=== PATIENT | female | born 1945 | race Caucasian/White ===

== ENCOUNTER 2020-07-07 13:13 | Outpatient (REF) | payer MEDICARE, OTHER, SELFPAY ==
[2020-07-07 14:04] LABS: Hematocrit 30.5 % (37-47); Hemoglobin 9.8 g/dl (12.0-16.0); Mean Corpuscular HGB Conc 32.1 g/dl (31.0-35.0); Mean Corpuscular Hemoglobin 30.4 pg (27.0-33.0); Mean Corpuscular Volume 94.7 fL (80-98); Mean Platelet Volume 10.2 fL (9.4-12.3); Platelet Count 365 X10*3/uL (160-400); Red Blood Count 3.22 X10*6/uL (4.20-5.50); Red Cell Distribution Width 13.5 % (11.0-16.0)
[2020-07-07 14:28] LABS: Alanine Aminotransferase 20 U/L (0-31); Albumin Level 4.2 g/dL (3.5-5.0); Alkaline Phosphatase 120 U/L (39-117); Anion Gap 12 (12-20); Aspartate Amino Transferase 21 U/L (5-31); Bilirubin Total 0.9 mg/dL (0.0-1.0); Blood Urea Nitrogen 19 mg/dL (9-16); Calcium 9.9 mg/dL (8.4-10.2); Carbon Dioxide 30 mmol/L (22-29); Chloride 101 mmol/L (96-108); Cholesterol 136 mg/dL; Estimated Glomerular Filt Rate 43; Glucose Fasting 96 mg/dL (60-99); HDL Cholesterol 35 mg/dL; LDL Cholesterol Calculated 84 mg/dl; Potassium 4.9 mmol/l (3.3-5.1); Sodium 138 mmol/L (135-145); Triglycerides 88 mg/dL
[2020-07-07 14:37] LABS: Thyroid Stimulating Hormone 0.43 uIU/mL (0.32-4.0); Vitamin D 25-OH Total 36.9 ng/mL (>30)
== END 2020-07-07 13:14 | disposition home or self-care (01) ==
LOC: HO.HMGCLDS 13:13
PROVIDERS: PCP Internal Medicine; Visit Provider Internal Medicine
DX: E78.2 Mixed hyperlipidemia (principal); I10 Essential (primary) hypertension; Z78.0 Asymptomatic menopausal state
CPT/HCPCS: 36415; 80053; 80061; 82306; 84443; 85027

== ENCOUNTER 2021-03-23 14:30 | Outpatient (RCR) | payer MEDICARE, OTHER, SELFPAY | END 2021-05-21 08:42 | disposition home or self-care (01) | LOC: HO.OT 14:30 | PROVIDERS: PCP Internal Medicine; Visit Provider Internal Medicine | DX: I63.9 Cerebral infarction, unspecified (principal) | CPT/HCPCS: 29130; 97110; 97166; 97530; 97760 ==

== ENCOUNTER 2021-04-15 11:00 | Outpatient (RCR) | payer MEDICARE, OTHER, SELFPAY ==
--- NOTE | 2021-06-15 14:44 | MHC.PT.DC ---
[facility] [place] Office [place] Office [place] Office [address] Ida Espino [address] [phone] F: [phone] F: [phone] F: [phone] F: [phone] Physical Therapy Discharge Report Diagnosis: CVA WITH RESIDUAL L SIDED WEAKNESS Date of Surgery: Date of Evaluation: 01/12/21 Date of Discharge: 04/15/21 Treatments to Date: 12 Cancellations to Date: 6 No Shows to Date: 2 Discharge Status: Independent with HEP Discharge Summary: PER LAST NOTE ASSESSMENT ON 04/15/21 PER JUDY FIGUEREDO AGILE SCRUM MASTER:' pt has no reported toe pain today. MD follow up on May 05. pt is Ind with her HEP. Amb to appt without device. pt feels her strength and endurance have increased. Requests D/C today. ' Electronically signed by: NAYELI MANN PT Please sign and return to therapist. Thank you for your referral.
== END 2021-06-15 14:44 | disposition home or self-care (01) ==
LOC: HO.PT 11:00
PROVIDERS: PCP Internal Medicine; Visit Provider Internal Medicine
DX: I63.9 Cerebral infarction, unspecified (principal)
CPT/HCPCS: 97110; 97112; 97162; 97530

== ENCOUNTER 2021-05-04 09:28 | Outpatient (REF) | payer MEDICARE, OTHER, SELFPAY ==
[2021-05-04 11:32] LABS: Hematocrit 35.6 % (37-47); Hemoglobin 11.2 g/dl (12.0-16.0); Mean Corpuscular HGB Conc 31.5 g/dl (31.0-35.0); Mean Corpuscular Hemoglobin 28.9 pg (27.0-33.0); Mean Platelet Volume 10.7 fL (9.4-12.3); Platelet Count 296 X10*3/uL (160-400); Red Blood Count 3.87 X10*6/uL (4.20-5.50); Red Cell Distribution Width 14.3 % (11.0-16.0); White Blood Count 5.9 X10*3/uL (4.8-10.8)
[2021-05-04 12:11] LABS: Alanine Aminotransferase 10 U/L (0-31); Alkaline Phosphatase 138 U/L (39-117); Anion Gap 11 (12-20); Aspartate Amino Transferase 16 U/L (5-31); Blood Urea Nitrogen 10 mg/dL (9-16); Calcium 9.3 mg/dL (8.4-10.2); Carbon Dioxide 28 mmol/L (22-29); Chloride 104 mmol/L (96-108); Cholesterol 123 mg/dL; Estimated Glomerular Filt Rate 59; Glucose Fasting 98 mg/dL (60-99); HDL Cholesterol 40 mg/dL; LDL Cholesterol Calculated 68 mg/dl; Potassium 4.1 mmol/L (3.3-5.1); Sodium 139 mmol/L (135-145); Total Protein 6.9 g/dL (6.5-8.0); Triglycerides 79 mg/dL
[2021-05-04 12:23] LABS: Folate 8.5 ng/mL (> or = 4.0); Vitamin B12 348 pg/mL (200-900)
[2021-05-04 12:32] LABS: TSH reflex Free T4 0.65 uIU/mL (0.32-4.0)
== END 2021-05-04 09:29 | disposition home or self-care (01) ==
LOC: HO.HMGCLDS 09:28
PROVIDERS: PCP Internal Medicine; Visit Provider Internal Medicine
DX: E78.5 Hyperlipidemia, unspecified (principal); I10 Essential (primary) hypertension; I63.9 Cerebral infarction, unspecified
CPT/HCPCS: 36415; 80053; 80061; 82607; 82746; 84443; 85027

== ENCOUNTER 2021-11-24 10:59 | Outpatient (REF) | payer MEDICARE, OTHER, SELFPAY ==
[2021-11-24 14:00] LABS: Hematocrit 40.8 % (37.0-47.0); Hemoglobin 12.8 g/dl (12.0-16.0); Mean Corpuscular HGB Conc 31.4 g/dl (31.0-35.0); Mean Corpuscular Hemoglobin 29.7 pg (27.0-33.0); Mean Corpuscular Volume 94.7 fL (80.0-98.0); Mean Platelet Volume 10.5 fL (9.4-12.3); Platelet Count 340 X10*3/uL (160-400); Red Blood Count 4.31 X10*6/uL (4.20-5.50); Red Cell Distribution Width 12.7 % (11.0-16.0); White Blood Count 9.1 X10*3/uL (4.8-10.8)
[2021-11-24 14:17] LABS: Alanine Aminotransferase 23 U/L (0-31); Albumin Level 4.4 g/dL (3.5-5.0); Alkaline Phosphatase 142 U/L (39-117); Anion Gap 12 (12-20); Aspartate Amino Transferase 23 U/L (5-31); Bilirubin Total 1.3 mg/dL (0.0-1.0); Blood Urea Nitrogen 16 mg/dL (9-16); Calcium 9.7 mg/dL (8.4-10.2); Carbon Dioxide 28 mmol/L (22-29); Chloride 103 mmol/L (96-108); Cholesterol 159 mg/dL; Estimated Glomerular Filt Rate 59; Glucose Fasting 90 mg/dL (60-99); HDL Cholesterol 47 mg/dL; LDL Cholesterol Calculated 99 mg/dl; Sodium 139 mmol/L (135-145); Total Protein 7.9 g/dL (6.5-8.0); Triglycerides 69 mg/dL
[2021-11-24 14:30] LABS: TSH reflex Free T4 0.85 uIU/mL (0.32-4.0); Vitamin D 25-OH Total 36.5 ng/mL (>30)
[2021-11-24 14:39] LABS: Vitamin B12 443 pg/mL (200-900)
== END 2021-11-24 11:00 | disposition home or self-care (01) ==
LOC: HO.HMGCLDS 10:59
PROVIDERS: PCP Internal Medicine; Visit Provider Internal Medicine
DX: E53.8 Deficiency of other specified B group vitamins (principal); E55.9 Vitamin D deficiency, unspecified; E78.5 Hyperlipidemia, unspecified; I48.91 Unspecified atrial fibrillation; I63.9 Cerebral infarction, unspecified
CPT/HCPCS: 36415; 80053; 80061; 82306; 82607; 84443; 85027

== ENCOUNTER 2022-03-16 10:20 | Outpatient (REF) | payer MEDICARE, OTHER, SELFPAY ==
[2022-03-16 11:47] LABS: Hematocrit 35.8 % (37.0-47.0); Hemoglobin 11.3 g/dl (12.0-16.0); Mean Corpuscular HGB Conc 31.6 g/dl (31.0-35.0); Mean Corpuscular Hemoglobin 29.6 pg (27.0-33.0); Mean Corpuscular Volume 93.7 fL (80.0-98.0); Mean Platelet Volume 10.5 fL (9.4-12.3); Platelet Count 280 X10*3/uL (160-400); Red Blood Count 3.82 X10*6/uL (4.20-5.50); White Blood Count 7.5 X10*3/uL (4.8-10.8)
[2022-03-16 12:11] LABS: Alanine Aminotransferase 24 U/L (0-31); Albumin Level 4.2 g/dL (3.5-5.0); Alkaline Phosphatase 122 U/L (39-117); Anion Gap 13 (12-20); Aspartate Amino Transferase 23 U/L (5-31); Bilirubin Total 1.3 mg/dL (0.0-1.0); Blood Urea Nitrogen 14 mg/dL (9-16); Calcium 9.1 mg/dL (8.4-10.2); Carbon Dioxide 29 mmol/L (22-29); Chloride 103 mmol/L (96-108); Cholesterol 111 mg/dL; Estimated Glomerular Filt Rate > 60; Glucose Fasting 92 mg/dL (60-99); HDL Cholesterol 39 mg/dL; LDL Cholesterol Calculated 57 mg/dl; Potassium 4.6 mmol/L (3.3-5.1); Sodium 140 mmol/L (135-145); Total Protein 7.2 g/dL (6.5-8.0); Triglycerides 75 mg/dL
== END 2022-03-16 10:21 | disposition home or self-care (01) ==
LOC: HO.HMGCLDS 10:20
PROVIDERS: Visit Provider Internal Medicine
DX: I48.91 Unspecified atrial fibrillation (principal); I10 Essential (primary) hypertension; L40.9 Psoriasis, unspecified; E78.5 Hyperlipidemia, unspecified
CPT/HCPCS: 36415; 80053; 80061; 85027

== ENCOUNTER 2022-04-12 15:23 | Outpatient (REF) | payer MEDICARE, OTHER, SELFPAY ==
--- NOTE | ~2022-04-12 | XR_ITS ---
EXAMINATION: XR ANKLE, LEFT CLINICAL INFORMATION: Left ankle pain. Pain in the left foot. COMPARISON: None TECHNIQUE: AP, lateral, and mortise views of the left ankle. FINDINGS: Bones are osteopenic. Soft tissues are swollen. No fracture or malalignment. Calcific atherosclerosis. Moderate sized enthesopathic spurs are present at the Achilles tendon insertion and plantar fascial origin on the calcaneus. Dystrophic calcifications are seen in the region of the Achilles tendon at the myotendinous junction, suggestive of tendinopathy. Ankle mortise is symmetric. XR/XR ankle LT min 3V IMPRESSION: 1. No acute osseous abnormalities at the left ankle 2. Generalized soft tissue swelling. 3. Prominent enthesopathic spurs at the calcaneus.
[2022-04-12 17:00] LABS: C Reactive Protein 0.08 mg/dL (< or = 0.50); Uric Acid 4.8 mg/dL (2.4-5.7)
== END 2022-04-12 15:24 | disposition home or self-care (01) ==
LOC: HO.HMGCX 15:23
PROVIDERS: PCP Internal Medicine; Visit Provider Internal Medicine
DX: M25.572 Pain in left ankle and joints of left foot (principal)
CPT/HCPCS: 36415; 73610; 84550; 86140

== ENCOUNTER 2022-07-16 11:08 | Outpatient (REF) | payer MEDICARE, OTHER, SELFPAY ==
[2022-07-16 15:28] LABS: Alanine Aminotransferase 20 U/L (0-31); Albumin Level 4.3 g/dL (3.5-5.0); Alkaline Phosphatase 159 U/L (39-117); Anion Gap 14 (12-20); Aspartate Amino Transferase 22 U/L (5-31); Blood Urea Nitrogen 11 mg/dL (9-16); Calcium 9.8 mg/dL (8.4-10.2); Carbon Dioxide 28 mmol/L (22-29); Chloride 102 mmol/L (96-108); Cholesterol 124 mg/dL; Estimated Glomerular Filt Rate > 60; Glucose Fasting 92 mg/dL (60-99); HDL Cholesterol 37 mg/dL; LDL Cholesterol Calculated 72 mg/dl; Potassium 4.4 mmol/L (3.3-5.1); Sodium 140 mmol/L (135-145); Total Protein 7.6 g/dL (6.5-8.0); Triglycerides 77 mg/dL
== END 2022-07-16 11:09 | disposition home or self-care (01) ==
LOC: HO.HMGCLDS 11:08
PROVIDERS: PCP Internal Medicine; Visit Provider Internal Medicine
DX: E78.5 Hyperlipidemia, unspecified (principal); I10 Essential (primary) hypertension; E55.9 Vitamin D deficiency, unspecified
CPT/HCPCS: 36415; 80053; 80061

== ENCOUNTER 2022-11-23 10:42 | Outpatient (REF) | payer MEDICARE, OTHER, SELFPAY ==
[2022-11-23 11:39] LABS: MANUAL DIFF FLAG NO
[2022-11-23 11:51] LABS: Basophils Absolute Auto 0.1 X10*3/uL (0.0-0.2); Basophils Percent Auto 1.1 % (0-2); Eosinophils Absolute Auto 0.1 X10*3/uL (0.0-0.4); Eosinophils Percent Auto 1.6 % (0-4); Hematocrit 36.9 % (37.0-47.0); Hemoglobin 11.5 g/dl (12.0-16.0); Imm Gran Abs Auto 0.02 X10*3/uL (0.00-0.03); Imm Gran Pct Auto 0.3 % (0.0-0.4); Lymphocytes Absolute Auto 0.8 X10*3/uL (1.2-4.9); Lymphocytes Percent Auto 13.1 % (20-40); Mean Corpuscular HGB Conc 31.2 g/dl (31.0-35.0); Mean Corpuscular Volume 93.2 fL (80.0-98.0); Mean Platelet Volume 10.9 fL (9.4-12.3); Monocytes Absolute Auto 0.6 X10*3/uL (0.1-1.2); Monocytes Percent Auto 8.6 % (2-11); Neutrophils Absolute Auto 4.8 x10*3/uL (2.0-8.3); Neutrophils Percent Auto 75.3 % (45-73); Platelet Count 293 X10*3/uL (160-400); Red Blood Count 3.96 X10*6/uL (4.20-5.50); Red Cell Distribution Width 13.5 % (11.0-16.0); White Blood Count 6.4 X10*3/uL (4.8-10.8)
[2022-11-23 12:24] LABS: Alanine Aminotransferase 19 U/L (0-31); Albumin Level 4.1 g/dL (3.5-5.0); Alkaline Phosphatase 129 U/L (39-117); Anion Gap 10 (12-20); Aspartate Amino Transferase 24 U/L (5-31); Bilirubin Total 1.3 mg/dL (0.0-1.0); Blood Urea Nitrogen 15 mg/dL (9-16); Calcium 9.3 mg/dL (8.4-10.2); Carbon Dioxide 29 mmol/L (22-29); Chloride 104 mmol/L (96-108); Estimated Glomerular Filt Rate > 60; Glucose Fasting 91 mg/dL (60-99); Sodium 139 mmol/L (135-145); Total Protein 6.9 g/dL (6.5-8.0)
[2022-11-23 12:55] LABS: Folate 12.7 ng/mL (> or = 4.0); Vitamin B12 397 pg/mL (200-900); Vitamin D 25-OH Total 39.9 ng/mL (>30)
== END 2022-11-23 10:43 | disposition home or self-care (01) ==
LOC: HO.HMGCLDS 10:42
PROVIDERS: PCP Internal Medicine; Visit Provider Internal Medicine
DX: E55.9 Vitamin D deficiency, unspecified (principal); E53.8 Deficiency of other specified B group vitamins; I48.91 Unspecified atrial fibrillation; E78.5 Hyperlipidemia, unspecified; I10 Essential (primary) hypertension
CPT/HCPCS: 36415; 80053; 82306; 82607; 82746; 85025

== ENCOUNTER 2023-06-21 10:33 | Outpatient (REF) | payer MEDICARE, OTHER, SELFPAY ==
[2023-06-21 13:28] LABS: MANUAL DIFF FLAG NO
[2023-06-21 13:39] LABS: Basophils Absolute Auto 0.1 X10*3/uL (0.0-0.2); Basophils Percent Auto 0.9 % (0-2); Eosinophils Absolute Auto 0.1 X10*3/uL (0.0-0.4); Eosinophils Percent Auto 1.8 % (0-4); Hematocrit 39.9 % (37.0-47.0); Hemoglobin 12.6 g/dl (12.0-16.0); Imm Gran Abs Auto 0.02 X10*3/uL (0.00-0.03); Imm Gran Pct Auto 0.3 % (0.0-0.4); Lymphocytes Absolute Auto 0.8 X10*3/uL (1.2-4.9); Lymphocytes Percent Auto 10.1 % (20-40); Mean Corpuscular HGB Conc 31.6 g/dl (31.0-35.0); Mean Corpuscular Hemoglobin 29.2 pg (27.0-33.0); Mean Corpuscular Volume 92.4 fL (80.0-98.0); Mean Platelet Volume 10.9 fL (9.4-12.3); Monocytes Absolute Auto 0.8 X10*3/uL (0.1-1.2); Monocytes Percent Auto 9.9 % (2-11); Neutrophils Absolute Auto 6.1 x10*3/uL (2.0-8.3); Platelet Count 320 X10*3/uL (160-400); Red Blood Count 4.32 X10*6/uL (4.20-5.50); Red Cell Distribution Width 14.8 % (11.0-16.0); White Blood Count 7.9 X10*3/uL (4.8-10.8)
[2023-06-21 14:06] LABS: Alanine Aminotransferase 24 U/L (0-31); Albumin Level 4.3 g/dL (3.5-5.0); Alkaline Phosphatase 132 U/L (39-117); Anion Gap 15 (12-20); Aspartate Amino Transferase 31 U/L (5-31); Bilirubin Total 0.9 mg/dL (0.0-1.0); Blood Urea Nitrogen 12 mg/dL (9-16); Calcium 9.9 mg/dL (8.4-10.2); Carbon Dioxide 28 mmol/L (22-29); Chloride 103 mmol/L (96-108); Estimated Glomerular Filt Rate > 60; Glucose Fasting 94 mg/dL (60-99); Potassium 4.3 mmol/L (3.3-5.1); Sodium 142 mmol/L (135-145)
[2023-06-21 14:22] LABS: TSH reflex Free T4 0.59 uIU/mL (0.32-4.0)
== END 2023-06-21 10:34 | disposition home or self-care (01) ==
LOC: HO.HMGCLDS 10:33
PROVIDERS: PCP Internal Medicine; Visit Provider Internal Medicine
DX: E78.5 Hyperlipidemia, unspecified (principal); I10 Essential (primary) hypertension
CPT/HCPCS: 36415; 80053; 84443; 85025

== ENCOUNTER 2023-06-29 13:05 | Outpatient (AMB) | payer MEDICARE, OTHER, SELFPAY ==
--- NOTE | 2023-06-29 13:13 | A.OFFVIS_ITS ---
Intake Vital Signs 06/29/23 13:19 Height 5 ft 4 in Weight 135 lb BMI 23.2 BP 130/80 Blood Pressure Location Rt brachial Position Sitting Pulse 71 Pulse Source Pulse Oximeter Pulse Oximetry (%) 99 Oxygen Delivery Method Room Air Intake Visit Reasons: AWV Intake Note: Pt is here today for AWV. Allergies diclofenac Allergy (Unknown, Verified 06/29/23 13:19) Diarrhea penicillin V Allergy (Unknown, Verified 06/29/23 13:19) hives Clindamycin HCl Allergy (Unknown, Uncoded 06/29/23 13:19) upset stomach nausea Medication List - Last Reconciled 06/29/23 by Vidhya Bobby MD apixaban (Eliquis) 5 mg PO BID atorvastatin 80 mg PO DAILY betamethasone dipropionate 0.05% 1 appl topical BID cetirizine (Zyrtec) PO DAILY desoximetasone 0.25% topical fluoxetine 20 mg PO DAILY lisinopril 30 mg (3 x 10 mg) PO DAILY lisinopril 30 mg PO DAILY metoprolol tartrate 50 mg PO BID omeprazole 20 mg PO DAILY ruxolitinib 1.5% (Opzelura) appl topical triamcinolone acetonide 0.1% 1 appl topical DAILY HPI AWV HPI Details Pt presents for annual. Initiated the conversation about Advanced Directives. Advanced Directives help? patients prepare for current and future decisions about their medical treatment? and place of care. Discussed with patient that it is a process where a patients? current condition and prognosis are reviewed, their wishes for information? regarding their illness are elicited, and likely medical dilemmas are presented? and options discussed. The form can be amended as needed, reviewed yearly and? make changes as needed IPPE/AWV ? year old presents? for her ? Annual? Wellness Visit, initial visit.? Medical / Social History Reviewed? Past Medical History ?Yes? . ? [place]? of Care / Care Team list updated ?Yes . ? Surgical/Hospitalization? History ?Yes . ? Current Medications? (including OTC and supplements) ?Yes . ? Family History ?Yes? . ? Tobacco? Control form ?Yes . ? AUDIT-C (Alcohol use) form? ?Yes . ? Illicit drug use in Social? History ?Yes . ? Current diagnosis of? depression? ?No ? Appropriate PHQ2/PHQ9? completed ?Yes . ? Data entered by ?Medical? Processing Operator and reviewed by provider ? Fall Risk ? Fall? History? Have you had any falls with? injury in the past year? ?No . ? Have you had two or more? falls in the past year? ?No . ? Fall Risk Assessment: ?No? falls in the past year . ? HRA filled out by? the patient, reviewed by Provider and scanned. ? IPPE/AWV ? Balance? Romberg? ?Yes . ? Tandem? walk ?Yes . ? Walk and? Turn ?Yes . ? Rise from? sit to stand ?Yes . ?Vision? Corrective? lens ?Yes ? Vision? screen ? Up-to-date, has an appointment [] for vision? screening and glaucoma screening ?Hearing? Whisper? test ?pass .? Initiated the conversation about Advanced Directives. Advanced Directives help? patients prepare for current and future decisions about their medical treatment? and place of care. Discussed with patient that it is a process where a patients? current condition and prognosis are reviewed, their wishes for information? regarding their illness are elicited, and likely medical dilemmas are presented? and options discussed. The form can be amended as needed, reviewed yearly and? make changes as needed Written? Plan?Completed. See Patient? Documents. [facility] Medical History A-fib Anxiety Burn of leg, left CVA (cerebral vascular accident) HTN (hypertension) Hyperlipidemia Psoriasis Uterine prolapse Vitamin B 12 deficiency Vitamin D deficiency Surgical History No pertinent past surgical history Family History Father No problems noted. Mother No problems noted. Social History Housing: House Patient Tobacco Use Status: Never used Tobacco e-Cigarette/Vaping Use: Never Used Second Hand Smoke Exposure: No Current occupational status: retired Cognitive needs: No Hearing needs: No Vision needs: Yes Questionnaire Medicare Wellness Checkup [age] What gender do you identify with?: female During the past 4 weeks, how much have you been bothered by emotional problems such as feeling anxious, depressed, irritable, sad or downhearted, and blue?: not at all During the past 4 weeks, has your physical & emotional health limited your social activities with family, friends, neighbors, or groups?: not at all During the past 4 weeks, how much bodily pain have you generally had?: mild pain During the past 4 weeks, was someone available to help you if you needed & wanted help?: yes, as much as I wanted During the past 4 weeks, what was the hardest physical activity you could do for at least 2 minutes?: very light Can you get to places out of walking distance without help? (For eg., can you travel alone on buses, taxis or drive your car?): Yes Can you go shopping for groceries or clothes without someone's help?: Yes Can you prepare your own meals?: Yes Can you do your housework without help?: Yes Because of any health problems, do you need the help of another person with your personal care needs such as eating, bathing, dressing or getting around the house?: No Can you handle your own money without help?: Yes During the past 4 weeks, how would you rate your health in general?: good During the past 4 weeks how have things been going for you?: pretty well Are you having difficulties driving your car?: no Do you always fasten your seat belt when you are in a car?: yes, usually During past 4 weeks, have you been bothered by the following: never: Falling or dizzy when standing up, Sexual problems?, Trouble eating well?, Teeth or denture problems?, Problems using the telephone? and Tiredness or fatigue? Have you fallen 2 or more times in the past year?: No Are you afraid of falling?: No Are you a smoker?: no During the past 4 weeks, how many drinks of wine, beer, or other alcoholic beverages did you have?: no alcohol at all Do you exercise for about 20 minutes 3 or more times a week?: yes, most of the time Have you been given information to help with the following?: yes: Hazards in your house that might hurt you? and yes: Keeping track of your medications? How often do you have trouble taking medicines the way you have been told to take them?: I always take medicine as prescribed How confident are you that you can control & manage most of your health problems?: very confident What is your race?: White Mini Mental State Exam (MMSE) Orientation What is the (year) (season) (date) (day) (month)?: year, season, date, day and month Where are we (state) (county) (town or city) (hospital) (floor)?: state, county, town or city, hospital/clinic and floor Registration Name of 3 unrelated objects clearly and slowly, then ask patient to repeat all 3 of them. (1st repeat determines score. Make sure they can repeat all three): object 1, object 2 and object 3 Attention & Calculation (CHOOSE ONE) Ask pt to begin with 100 & count backward by 7. Stop after 5 repeats. If pt cannot ask them to spell the word WORLD backward.: 93 Spell WORLD backwards (DLROW): 5 letters Recall Ask patient to repeat the 3 items from question #3.: object 1, object 2 and object 3 Language Show patient a wristwatch & ask what it is. Repeat for pencil.: pencil Ask the patient to repeat the phrase 'No ifs, ands, or buts' after you.: correct Ask the patient to 'take a piece of paper with their right hand' 'fold paper in half' 'place paper on floor': take paper in right hand, fold paper in half and place paper on floor Print the sentence 'CLOSE YOUR EYES' on a piece. If patient actually closes eyes then score.: followed written direction Give patient a blank piece of paper & ask to write a sentence. Score if it contains a noun & verb.: sentence contains subject and verb Score Score: 29 Activity of Daily Living Bathing - sponge bath, tub bath or shower: receives no assistance (gets in/out by self, if usual bathing means Dressing - getting clothes from closets & drawers, including inner/outer garments & fasteners.: gets clothes & gets completely dressed without help Toileting - going to the 'toilet room' for urine/bowel elimination & cleaning self/arranging clothes: goes to toilet room, cleans self, arranges clothes without help Transfer: moves in & out of bed and chair without help (may use support object) Continence: controls urination/bowel movements completely by self Feeding: feeds self without help Total Score: 0 Information obtained from: patient Using telephone: independent Traveling: dependent Shopping: independent Preparing meals: independent Housework: independent Taking medicine: independent Managing money: independent PHQ-9 Over the last 2 weeks, how often have you been bothered by any of the following problems? 1. Little interest or pleasure in doing things: not at all 2. Feeling down, depressed, or hopeless: not at all 3. Trouble falling or staying asleep, or sleeping too much: not at all 4. Feeling tired or having little energy: not at all 5. Poor appetite or overeating: not at all 6. Feeling bad about yourself - or that you are a failure or have let yourself or your family down: not at all 7. Trouble concentrating on things, such as reading the newspaper or watching television: not at all 8. Moving or speaking so slowly that other people could have noticed. Or the opposite - being so fidgety or restless that you have been moving around a lot more than usual: not at all 9. Thoughts that you would be better off or of hurting yourself in some way: not at all Total score: 0 Depression Screening Interpretation: Negative Depression Screening Done: Yes Source: Developed by Drs. Clark Olsen, Tracy Khoury, Harvinder Mullins and colleagues, with an educational alexandra from [employer]. Review of Systems Const All systems reviewed & are unremarkable except as noted in HPI and below Reports no additional complaints Eyes Reports no additional complaints ENT Reports no additional complaints Card Reports no additional complaints Resp Reports no additional complaints GI Reports no additional complaints Reports no additional complaints Physical Exam Vital Signs: Last Vital Signs Pulse 71 06/29/23 13:19 BP 130/80 06/29/23 13:19 Pulse Ox 99 06/29/23 13:19 Oxygen Delivery Method Room Air 06/29/23 13:19 BMI result Body Mass Index 23.2 Const General: no acute distress HEENT Head: Yes normal to inspection Ears: hearing grossly normal bilaterally Eyes General: appearance normal, both eyes and all related structures Neck Neck: Yes no lymphadenopathy and Yes supple Resp Effort & Inspection: normal respiratory effort Auscultation: clear to auscultation bilaterally Cardio Rhythm: regular rhythm Heart sounds: S1 normal heart sound present and S2 normal heart sound present Extrem General: Yes no clubbing, cyanosis or edema Assessment & Plan Assessment & Plan (1) Annual physical exam: Code(s): Z00.00 - Encounter for general adult medical examination without abnormal findings Plan: Well-balanced diet regular physical activity discussed with the patient (2) A-fib: Code(s): I48.91 - Unspecified atrial fibrillation Plan: Continue Eliquis and metoprolol for rate control (3) Hyperlipidemia: Code(s): E78.5 - Hyperlipidemia, unspecified Plan: Continue statin (4) HTN (hypertension): Code(s): I10 - Essential (primary) hypertension Plan: Continue current medications, f/u 6 months Quality Reporting (2019) Depression/Bipolar (159/160/161/177) PHQ-9: Total score: 0 Coding Level of Care Code Medicare Subsequent (G0439) Diagnoses Annual physical exam Z00.00 A-fib I48.91 Hyperlipidemia E78.5 HTN (hypertension) I10 CPT Codes Advance Care Planning - Time spent: 1-15 minutes, not on file ([id number]) Advance Care Planning Advance Care Planning discussion: Exists, not on file Forms completed: Health Care Proxy Time spent: 1-15 minutes, not on file
[2023-06-29 13:19] VITALS: BP 130/80; PULSE 71; O2SAT 99; BMI 23.2
== END 2023-06-29 15:49 | disposition home or self-care (01) ==
PROVIDERS: PCP Internal Medicine; Visit Provider Internal Medicine
DX: Z00.00 Encounter for general adult medical examination without abnormal findings (principal); I48.91 Unspecified atrial fibrillation; E78.5 Hyperlipidemia, unspecified; I10 Essential (primary) hypertension
CPT/HCPCS: 1124F; G0439

== ENCOUNTER 2023-11-09 10:31 | Outpatient (REF) | payer MEDICARE, OTHER, SELFPAY ==
[2023-11-09 13:24] LABS: MANUAL DIFF FLAG NO
[2023-11-09 13:37] LABS: Basophils Absolute Auto 0.1 X10*3/uL (0.0-0.2); Basophils Percent Auto 1.2 % (0-2); Eosinophils Absolute Auto 0.4 X10*3/uL (0.0-0.4); Hemoglobin 12.4 g/dl (12.0-16.0); Imm Gran Abs Auto 0.03 X10*3/uL (0.00-0.03); Imm Gran Pct Auto 0.3 % (0.0-0.4); Lymphocytes Absolute Auto 0.9 X10*3/uL (1.2-4.9); Lymphocytes Percent Auto 9.9 % (20-40); Mean Corpuscular HGB Conc 31.8 g/dl (31.0-35.0); Mean Corpuscular Hemoglobin 29.5 pg (27.0-33.0); Mean Corpuscular Volume 92.9 fL (80.0-98.0); Mean Platelet Volume 10.6 fL (9.4-12.3); Monocytes Absolute Auto 0.9 X10*3/uL (0.1-1.2); Monocytes Percent Auto 10.5 % (2-11); Neutrophils Absolute Auto 6.4 x10*3/uL (2.0-8.3); Neutrophils Percent Auto 74.1 % (45-73); Platelet Count 319 X10*3/uL (160-400); Red Cell Distribution Width 13.9 % (11.0-16.0); White Blood Count 8.7 X10*3/uL (4.8-10.8)
[2023-11-09 13:57] LABS: Alanine Aminotransferase 20 U/L (0-31); Alkaline Phosphatase 151 U/L (39-117); Anion Gap 11 (12-20); Aspartate Amino Transferase 27 U/L (5-31); Bilirubin Total 1.1 mg/dL (0.0-1.0); Blood Urea Nitrogen 12 mg/dL (9-16); Calcium 9.7 mg/dL (8.4-10.2); Carbon Dioxide 29 mmol/L (22-29); Chloride 103 mmol/L (96-108); Cholesterol 121 mg/dL (<200); Estimated Glomerular Filt Rate > 60; Glucose Random 90 mg/dL (60-115); HDL Cholesterol 39 mg/dL (>40); LDL Cholesterol Calculated 67 mg/dL (<100); Potassium 4.3 mmol/L (3.3-5.1); Sodium 139 mmol/L (135-145); Total Protein 7.9 g/dL (6.5-8.0); Triglycerides 79 mg/dL (<150)
== END 2023-11-09 10:32 | disposition home or self-care (01) ==
LOC: HO.HMGCLDS 10:31
PROVIDERS: PCP Internal Medicine; Visit Provider Dermatology
DX: I70.90 Unspecified atherosclerosis (principal); Z51.81 Encounter for therapeutic drug level monitoring; Z79.899 Other long term (current) drug therapy
CPT/HCPCS: 36415; 80053; 80061; 85025

== ENCOUNTER 2024-01-13 11:35 | Outpatient (AMB) | payer MEDICARE, OTHER, SELFPAY ==
[2024-01-13 11:36] VITALS: BP 118/76; PULSE 85; O2SAT 97; BMI 23.2
--- NOTE | 2024-01-13 11:36 | MHC.PC.OV ---
Vital Signs 01/13/24 11:36 Height 5 ft 4 in Weight 135 lb BMI 23.2 BP 118/76 Blood Pressure Location Rt brachial Position Sitting Pulse 85 Pulse Source Pulse Oximeter Pulse Oximetry (%) 97 Oxygen Delivery Method Room Air Intake Visit Reasons: Cataract surgery 01/30 and 02/05 Intake Note: Pt is here today for a pre op visit. Pt is having cataract surgery on 01/31/24 and 02/06/24. Allergies diclofenac Allergy (Unknown, Verified 01/13/24 11:50) Diarrhea penicillin V Allergy (Unknown, Verified 01/13/24 11:50) hives Clindamycin HCl Allergy (Unknown, Uncoded 01/13/24 11:50) upset stomach nausea Medication List - Last Reconciled 01/13/24 by Vidhya Bobby MD acitretin 10 mg PO DAILY apixaban (Eliquis) 5 mg PO BID atorvastatin 80 mg PO DAILY betamethasone dipropionate 0.05% 1 appl topical BID cetirizine (Zyrtec) PO DAILY desoximetasone 0.25% topical fluoxetine 20 mg PO DAILY lisinopril 30 mg PO DAILY metoprolol tartrate 50 mg PO BID omeprazole 20 mg PO DAILY ruxolitinib 1.5% (Opzelura) appl topical triamcinolone acetonide 0.1% 1 appl topical DAILY Tobacco use date assessed: 01/13/24 Fall risk assessment: No Falls in past year Last assessed Fall Risk: 01/13/24 Dental Screening Dental Screen Date: 01/13/24 Did you have a dental visit in the last 12 months?: Yes Did you have a dental problem in the last 6 months where you did not have access to dental care?: No Was dental information given to patient?: Patient has dentist HPI Cataract surgery 01/30 and 02/05 HPI Details Pt presents for preop for cataract. HTN, hyperlipid, paroxysmal A fib, are stable on current medications PFSH Medical History Anxiety Psoriasis Vitamin D deficiency Vitamin B 12 deficiency A-fib Burn of leg, left CVA (cerebral vascular accident) Uterine prolapse Hyperlipidemia HTN (hypertension) Surgical History No pertinent past surgical history Family History Father No problems noted. Mother No problems noted. Social History Housing: House Patient Tobacco Use Status: Never used Tobacco e-Cigarette/Vaping Use: Never Used Second Hand Smoke Exposure: No service: No Current occupational status: retired Cognitive needs: No Hearing needs: No Vision needs: Yes Questionnaire PHQ-9 Over the last 2 weeks, how often have you been bothered by any of the following problems? 1. Little interest or pleasure in doing things: not at all 2. Feeling down, depressed, or hopeless: not at all 3. Trouble falling or staying asleep, or sleeping too much: not at all 4. Feeling tired or having little energy: not at all 5. Poor appetite or overeating: not at all 6. Feeling bad about yourself - or that you are a failure or have let yourself or your family down: not at all 7. Trouble concentrating on things, such as reading the newspaper or watching television: not at all 8. Moving or speaking so slowly that other people could have noticed. Or the opposite - being so fidgety or restless that you have been moving around a lot more than usual: not at all 9. Thoughts that you would be better off or of hurting yourself in some way: not at all Total score: 0 Depression Screening Interpretation: Negative Depression Screening Done: Yes Source: Developed by Drs. Clark Olsen, Tracy Khoury, Harvinder Mullins and colleagues, with an educational alexandra from [employer]. Thrive Questionnaire Date Thrive assessed: 01/13/24 I am a: Patient What is your living situation today?: I have a steady place to live Within the past 12 months, did the food you bought not last and you didn't have the money to get more?: Never true Within the past 12 months, did you worry whether your food would run out before you got money to buy more?: Never true Do you have trouble paying for medicines?: No Do you have trouble getting transportation to medical appointments?: No Do you have trouble paying your heating and electricity bill?: No Do you have trouble taking care of your child, family member or friend?: No Do you have trouble with day-to-day activities such as bathing, preparing meals, shopping, managing finances, etc.?: No Are you currently unemployed and looking for a job?: No Are you interested in more education?: No Please select the resources that you would like help with: None THRIVE Score: 0 AUDIT C Alcohol Use Questionnaire (AUDIT-C) 1. How often do you have a drink containing alcohol?: Never 3. How often do you have six or more drinks on one occasion?: Never Total Score: 0 DARLENE-7 AMB Questionnaire DARLENE-7 Date DARLENE - 7 assessed: 01/13/24 Feeling nervous, anxious, or on edge: 0 = Not at all Not being able to stop or control worryin = Not at all Worrying too much about different things: 0 = Not at all Trouble relaxin = Not at all Being so restless that it is hard to sit still: 0 = Not at all Becoming easily annoyed or irritable: 0 = Not at all Feeling afraid as if something awful might happen: 0 = Not at all Total DARLENE-7 score (0-4 normal; 5-9 mild; 10-14 moderate; 15-21 severe): 0 Source: Developed by Drs. Clark Olsen, Tracy Khoury, Harvinder Mullins and colleagues, with an educational alexandra from [employer]. Review of Systems Const All systems reviewed & are unremarkable except as noted in HPI and below Eyes Reports no additional complaints ENT Reports no additional complaints Card Reports no additional complaints Resp Reports no additional complaints GI Reports no additional complaints Reports no additional complaints Physical exam (Primary Care) Vital Signs: Last Vital Signs Pulse 85 01/13/24 11:36 BP 118/76 01/13/24 11:36 Pulse Ox 97 01/13/24 11:36 Oxygen Delivery Method Room Air 01/13/24 11:36 BMI result Body Mass Index 23.2 Tobacco/Smoking Status: Tobacco use Status Tobacco use date assessed 01/13/24 01/13/24 11:55 Patient Tobacco Use Status Never used Tobacco 01/13/24 11:55 e-Cigarette/Vaping Use Never Used 01/13/24 11:38 PHQ-9: PHQ-9 Score PHQ-9: Total score 0 01/13/24 12:23 Depression Screening Interpretation: Negative Thrive Assessment: Date of Thrive Assessment Date Thrive assessed 01/13/24 01/13/24 11:55 Const General: no acute distress HENMT Ears: hearing grossly normal bilaterally Mouth: Normal oral and palatal mucosa present Eyes General: appearance normal, both eyes and all related structures Neck Neck: Yes supple Resp Effort & Inspection: normal respiratory effort Auscultation: clear to auscultation bilaterally Cardio Rhythm: regular rhythm Heart sounds: S1 normal heart sound present and S2 normal heart sound present Assessment and Plan Assessment & Plan (1) HTN (hypertension): Code(s): I10 - Essential (primary) hypertension Plan: Continue current medications (2) Hyperlipidemia: Code(s): E78.5 - Hyperlipidemia, unspecified Plan: Continue statin (3) CVA (cerebral vascular accident): Comment: 09/01/20 with LEFT-SIDED WEAKNESS Code(s): I63.9 - Cerebral infarction, unspecified (4) A-fib: Code(s): I48.91 - Unspecified atrial fibrillation Plan: Continue Eliquis and metoprolol (5) Cataract: Code(s): H26.9 - Unspecified cataract Plan: Patient is medically cleared for cataract surgery Orders: Orders Comprehensive [place]. Panel Fast 6 Months E78.5 - Hyperlipidemia, unspecified, I10 - Essential (primary) hypertension, I48.91 - Unspecified atrial fibrillation, I63.9 - Cerebral infarction, unspecified Complete Blood Count Auto Diff 6 Months E78.5 - Hyperlipidemia, unspecified, I10 - Essential (primary) hypertension, I48.91 - Unspecified atrial fibrillation, I63.9 - Cerebral infarction, unspecified Coding Level of Care Code Est Pt Level 4 (89979) Diagnoses HTN (hypertension) I10 Hyperlipidemia E78.5 CVA (cerebral vascular accident) I63.9 A-fib I48.91 Cataract H26.9
== END 2024-01-13 13:02 | disposition home or self-care (01) ==
PROVIDERS: PCP Internal Medicine; Visit Provider Internal Medicine
DX: I48.91 Unspecified atrial fibrillation (principal); I10 Essential (primary) hypertension; E78.5 Hyperlipidemia, unspecified; Z86.73 Personal history of transient ischemic attack (TIA), and cerebral infarction without residual deficits; H26.9 Unspecified cataract
CPT/HCPCS: 99214

== ENCOUNTER 2024-05-07 08:58 | Outpatient (REF) | payer MEDICARE, OTHER, SELFPAY ==
[2024-05-07 10:21] LABS: MANUAL DIFF FLAG NO
[2024-05-07 10:23] LABS: Basophils Absolute Auto 0.1 X10*3/uL (0.0-0.2); Basophils Percent Auto 0.7 % (0-2); Eosinophils Absolute Auto 0.2 X10*3/uL (0.0-0.4); Eosinophils Percent Auto 1.8 % (0-4); Hematocrit 36.3 % (37.0-47.0); Hemoglobin 11.5 g/dl (12.0-16.0); Imm Gran Abs Auto 0.05 X10*3/uL (0.00-0.03); Imm Gran Pct Auto 0.6 % (0.0-0.4); Lymphocytes Percent Auto 11.8 % (20-40); Mean Corpuscular HGB Conc 31.7 g/dl (31.0-35.0); Mean Corpuscular Hemoglobin 29.6 pg (27.0-33.0); Mean Corpuscular Volume 93.3 fL (80.0-98.0); Mean Platelet Volume 10.1 fL (9.4-12.3); Monocytes Percent Auto 11.7 % (2-11); Neutrophils Absolute Auto 6.1 x10*3/uL (2.0-8.3); Neutrophils Percent Auto 73.4 % (45-73); Platelet Count 288 X10*3/uL (160-400); Red Blood Count 3.89 X10*6/uL (4.20-5.50); Red Cell Distribution Width 14.7 % (11.0-16.0); White Blood Count 8.3 X10*3/uL (4.8-10.8)
[2024-05-07 10:49] LABS: Alanine Aminotransferase 24 U/L (0-31); Albumin Level 3.8 g/dL (3.5-5.0); Alkaline Phosphatase 119 U/L (39-117); Anion Gap 10 (12-20); Aspartate Amino Transferase 24 U/L (5-31); Bilirubin Total 0.7 mg/dL (0.0-1.0); Blood Urea Nitrogen 18 mg/dL (9-16); Calcium 9.4 mg/dL (8.4-10.2); Carbon Dioxide 29 mmol/L (22-29); Chloride 104 mmol/L (96-108); Cholesterol 131 mg/dL (<200); Estimated Glomerular Filt Rate > 60; Glucose Random 89 mg/dL (60-115); HDL Cholesterol 36 mg/dL (>40); LDL Cholesterol Calculated 70 mg/dL (<100); Potassium 4.4 mmol/L (3.3-5.1); Sodium 139 mmol/L (135-145); Triglycerides 127 mg/dL (<150)
== END 2024-05-07 08:59 | disposition home or self-care (01) ==
LOC: HO.HMGCLDS 08:58
PROVIDERS: PCP Internal Medicine; Visit Provider Dermatology Procedural Dermatology
DX: L40.0 Psoriasis vulgaris (principal); Z79.899 Other long term (current) drug therapy
CPT/HCPCS: 36415; 80053; 80061; 85025

== ENCOUNTER 2024-06-18 08:33 | Outpatient (AMB) | payer MEDICARE, OTHER, SELFPAY ==
--- NOTE | 2024-06-18 08:35 | MHC.OFFWIV ---
Intake Vital Signs 06/18/24 08:37 Height 5 ft 4 in Weight 135 lb BMI 23.2 BP 136/88 Blood Pressure Location Rt brachial Position Sitting Pulse 74 Pulse Source Pulse Oximeter Pulse Oximetry (%) 98 Oxygen Delivery Method Room Air Intake Visit Reasons: EP Infection lt toe, Lt shoulder pain Intake Note: Patient here for second toe on left foot with open wound that has been present for about 1 month. Pt would also like to talk about left shoulder pain. Patient Tobacco Use Status: Never used Tobacco Allergies diclofenac Allergy (Unknown, Verified 06/18/24 08:46) Diarrhea penicillin V Allergy (Unknown, Verified 06/18/24 08:46) hives Clindamycin HCl Allergy (Unknown, Uncoded 06/18/24 08:46) upset stomach nausea Do you need a note to return to daycare/school/sports/work: No HPI HPI Comments History of Present Illness Details Patient is a 79-year-old female here with her daughter with 2 complaints. Her 1st complaint is she has had months of left shoulder pain with limited range of motion. She states she did not have an injury but she was getting out of a bed that was very low to the floor and trying to push herself up and she thinks that may have when the pain started. She has since moved herself to a higher bed and does not have to do that motion to get out of bed. She tells me she can not lift her arm out in front of her or over her head. She is also on a blood thinner so she is unable to take NSAIDs but she has been using ice and heat without much relief. She tells me she had a massive stroke a few years ago and is very weak on the left side but this is pain and weakness beyond her chronic issue. In addition to her left-sided weakness, she tells me she had a previous fracture in the left shoulder years ago. They are also concerned about an infection on her left 2nd toe. They state that she has had an open wound that is been there for about a month that is very tender. She states that the way her toes are with her arthritis, the wound gets was crushed between her great toe and 2nd toe. She has been using Neosporin on it and covering it but it is not healing. She denies any white yellow rojas liquid oozing from it. She does have a human resources district manager and she is going to see them on June 22. [facility] Medical History Anxiety Psoriasis Vitamin D deficiency Vitamin B 12 deficiency A-fib Burn of leg, left CVA (cerebral vascular accident) Uterine prolapse Hyperlipidemia HTN (hypertension) Surgical History No pertinent past surgical history Family History Father No problems noted. Mother No problems noted. Social History Housing: House Patient Tobacco Use Status: Never used Tobacco e-Cigarette/Vaping Use: Never Used Second Hand Smoke Exposure: No service: No Current occupational status: retired Cognitive needs: No Hearing needs: No Vision needs: Yes Review of Systems Const All systems reviewed & are unremarkable except as noted in HPI and below Physical Exam Vital Signs: Last Vital Signs Pulse 74 06/18/24 08:37 BP 136/88 06/18/24 08:37 Pulse Ox 98 06/18/24 08:37 Oxygen Delivery Method Room Air 06/18/24 08:37 BMI result Body Mass Index 23.2 Const General: cooperative, healthy appearing, comfortable, no acute distress and well developed Orientation/consciousness: patient oriented x3 Limitations: no limitations HEENT Head: Yes normal to inspection Ears: hearing grossly normal bilaterally General nose exam: Normal external nose present Face and sinus: Yes normal facial exam Eyes General: appearance normal, both eyes and all related structures Neck Neck: Yes normal visual inspection and Yes full ROM Resp Effort & Inspection: normal respiratory effort and able to speak in complete sentences Skin General skin exam: no rashes or lesions noted Neuro General: patient oriented x3 Extrem General: Yes normal to inspection Left upper extremity: shoulder/upper arm Details: inspection abnormal, axillary nerve sensory function normal and abnormal ROM Details: pain with active ROM Details: in ABduction and in extension and pain with passive ROM Details: in ABduction and in extension; no swelling, no abrasions, no lacerations, no ecchymosis, no deformity and no unsual warmth Ankle/foot/toe images: 1. left 2nd toe, small lac, scant bleeding, no warmth, no purulence, no erythema, no ecchymosis noted. TTP Assessment & Plan Assessment & Plan (1) Left shoulder pain: Code(s): M25.512 - Pain in left shoulder Qualifiers: Chronicity: acute Qualified Code(s): M25.512 - Pain in left shoulder Plan: No trauma to the shoulder but she tells me she does have a previous injury and now that she is unable to perform full [id number] testing, we will get an x-ray today. Likely needs some physical therapy. Recommended she follow up with her PCP in a few days, as previously scheduled. (2) Laceration of second toe, left: Code(s): S91.115A - Laceration without foreign body of left lesser toe(s) without damage to nail, initial encounter Qualifiers: Encounter type: initial encounter Qualified Code(s): S91.115A - Laceration without foreign body of left lesser toe(s) without damage to nail, initial encounter Plan: Toe does not look infected, patient is on a blood thinner so there is some scant bleeding. Recommended she stop using Neosporin and start using Aquaphor twice daily and try to put a roll of gauze in between the 1st and 2nd toe so that it may heal because it is rubs on the 1st toe and that is likely why it is not healing. Recommended she continue to follow up with her human resources district manager later this week, as planned. Orders: Orders XR shoulder LT min 2V Today M25.512 - Pain in left shoulder Coding Level of Care Code Est Pt Level 4 (78665) Diagnoses Acute pain of left shoulder M25.512 Chronicity: acute Laceration of second toe of left foot, initial encounter S91.115A Encounter type: initial encounter
[2024-06-18 08:37] VITALS: BP 136/88; PULSE 74; O2SAT 98; BMI 23.2
== END 2024-06-18 09:06 | disposition home or self-care (01) ==
PROVIDERS: PCP Internal Medicine; Visit Provider Physician Assistant
DX: M25.512 Pain in left shoulder (principal); S91.115A Laceration without foreign body of left lesser toe(s) without damage to nail, initial encounter

== ENCOUNTER 2024-06-18 08:33 | Outpatient (REF) | payer MEDICARE, OTHER, SELFPAY ==
--- NOTE | ~2024-06-18 | XR_ITS ---
EXAMINATION: XR SHOULDER, LEFT CLINICAL INFORMATION: Left shoulder pain, history of falls, fracture from a few years ago. COMPARISON: None available. TECHNIQUE: Three views of the left shoulder. FINDINGS: Moderate degenerative changes in the acromioclavicular joint. Diffuse demineralization. Moderate degenerative changes in the glenohumeral joint. Deformity of the humeral head is characteristic of prior fracture given stated history of fracture years ago. Correlation with clinical exam and direct correlation with prior images is recommended to determine further management. If prior images are provided, an addendum will be dictated. In the absence of prior images, CT scan or MRI should be considered for further evaluation if there is concern for fracture or other pathology. XR/XR shoulder LT min 2V IMPRESSION: Deformity of the humeral head is characteristic of prior fracture given stated history of fracture years ago. Correlation with clinical exam and direct correlation with prior images is recommended to determine further management. If prior images are provided, an addendum will be dictated. In the absence of prior images, CT scan or MRI should be considered for further evaluation if there is clinical concern for acute fracture or other pathology. This study was presented today, June 18, 2024, for interpretation. Stat results provided at this time as requested by referring provider. Electronically signed by: Zora Baird MD 06/18/2024 12:21 PM EDT
== END 2024-06-18 08:34 | disposition home or self-care (01) ==
LOC: HO.HMGCX 08:33
PROVIDERS: PCP Internal Medicine; Visit Provider Physician Assistant
DX: M25.512 Pain in left shoulder (principal); S91.115A Laceration without foreign body of left lesser toe(s) without damage to nail, initial encounter
CPT/HCPCS: 73030; 99212

== ENCOUNTER 2024-06-22 11:22 | Outpatient (REF) | payer MEDICARE, OTHER, SELFPAY ==
[2024-06-22 13:27] LABS: MANUAL DIFF FLAG NO
[2024-06-22 13:47] LABS: Basophils Absolute Auto 0.1 X10*3/uL (0.0-0.2); Basophils Percent Auto 0.7 % (0-2); Eosinophils Absolute Auto 0.1 X10*3/uL (0.0-0.4); Eosinophils Percent Auto 1.2 % (0-4); Hematocrit 39.6 % (37.0-47.0); Hemoglobin 12.6 g/dl (12.0-16.0); Imm Gran Abs Auto 0.03 X10*3/uL (0.00-0.03); Imm Gran Pct Auto 0.4 % (0.0-0.4); Lymphocytes Absolute Auto 0.8 X10*3/uL (1.2-4.9); Lymphocytes Percent Auto 10.5 % (20-40); Mean Corpuscular HGB Conc 31.8 g/dl (31.0-35.0); Mean Corpuscular Volume 94.3 fL (80.0-98.0); Mean Platelet Volume 10.3 fL (9.4-12.3); Monocytes Absolute Auto 0.6 X10*3/uL (0.1-1.2); Monocytes Percent Auto 8.3 % (2-11); Neutrophils Absolute Auto 6.1 x10*3/uL (2.0-8.3); Neutrophils Percent Auto 78.9 % (45-73); Platelet Count 321 X10*3/uL (160-400); Red Cell Distribution Width 14.4 % (11.0-16.0); White Blood Count 7.7 X10*3/uL (4.8-10.8)
[2024-06-22 14:17] LABS: Alanine Aminotransferase 23 U/L (0-31); Albumin Level 4.1 g/dL (3.5-5.0); Alkaline Phosphatase 139 U/L (39-117); Anion Gap 13 (12-20); Aspartate Amino Transferase 33 U/L (5-31); Bilirubin Total 0.7 mg/dL (0.0-1.0); Blood Urea Nitrogen 16 mg/dL (9-16); Calcium 9.5 mg/dL (8.4-10.2); Carbon Dioxide 26 mmol/L (22-29); Chloride 105 mmol/L (96-108); Estimated Glomerular Filt Rate > 60; Glucose Fasting 104 mg/dL (60-99); Potassium 4.7 mmol/L (3.3-5.1); Sodium 139 mmol/L (135-145); Total Protein 7.7 g/dL (6.5-8.0)
[2024-06-22 14:20] LABS: Cholesterol 141 mg/dL (<200); HDL Cholesterol 41 mg/dL (>40); LDL Cholesterol Calculated 81 mg/dL (<100); Triglycerides 99 mg/dL (<150)
== END 2024-06-22 11:23 | disposition home or self-care (01) ==
LOC: HO.HMGCLDS 11:22
PROVIDERS: PCP Internal Medicine; Referring Provider Dermatology Procedural Dermatology; Visit Provider Internal Medicine
DX: M25.512 Pain in left shoulder (principal); L97.529 Non-pressure chronic ulcer of other part of left foot with unspecified severity; I10 Essential (primary) hypertension; E78.5 Hyperlipidemia, unspecified; E55.9 Vitamin D deficiency, unspecified; L40.0 Psoriasis vulgaris; I48.91 Unspecified atrial fibrillation; Z79.899 Other long term (current) drug therapy; Z86.73 Personal history of transient ischemic attack (TIA), and cerebral infarction without residual deficits
CPT/HCPCS: 36415; 80053; 80061; 85025; 96127; 99212

== ENCOUNTER 2024-06-22 12:53 | Outpatient (AMB) | payer MEDICARE, OTHER, SELFPAY ==
[2024-06-22 13:03] VITALS: BP 126/70; PULSE 94; O2SAT 95; BMI 23.2
--- NOTE | 2024-06-22 13:03 | A.OFFPC_ITS ---
Vital Signs 06/22/24 13:03 Height 5 ft 4 in Weight 135 lb BMI 23.2 BP 126/70 Blood Pressure Location Rt brachial Position Sitting Pulse 94 Pulse Source Pulse Oximeter Pulse Oximetry (%) 95 Oxygen Delivery Method Room Air Intake Visit Reasons: Pain Management - LT Shoulder Intake Note: Pt is here today for a follow up visit. Pt states that she has a ulcer on her L foot.Pt also c/i L shoulder pain she had xray done and will need MRI. Allergies diclofenac Allergy (Unknown, Verified 06/22/24 13:07) Diarrhea penicillin V Allergy (Unknown, Verified 06/22/24 13:07) hives Clindamycin HCl Allergy (Unknown, Uncoded 06/22/24 13:07) upset stomach nausea Medication List - Last Reconciled 06/22/24 by Vidhya Bobby MD acitretin 10 mg PO DAILY apixaban (Eliquis) 5 mg PO BID atorvastatin 80 mg PO DAILY azithromycin 250 mg PO DAILY cadexomer iodine 0.9% (Iodosorb) 40 grams topical 2XW cetirizine (Zyrtec) PO DAILY fluoxetine 20 mg PO DAILY lisinopril 30 mg PO DAILY metoprolol tartrate 50 mg PO BID omeprazole 20 mg PO DAILY ruxolitinib 1.5% (Opzelura) appl topical Tobacco use date assessed: 06/22/24 Dental Screening Dental Screen Date: 01/13/24 HPI Pain Management - LT Shoulder HPI Details Patient presents for the follow-up hypertension and chronic anxiety. She complains of chronic left shoulder pain worse after pushing herself of the bed a few weeks ago. She has been working on improving range of motion and is feeling slightly better. Patient has been going to physical therapy for poor balance and lower extremity weakness. She denies any recent falls. [facility] Medical History Anxiety Psoriasis Vitamin D deficiency Vitamin B 12 deficiency A-fib Burn of leg, left CVA (cerebral vascular accident) Uterine prolapse Hyperlipidemia HTN (hypertension) Surgical History No pertinent past surgical history Family History Father No problems noted. Mother No problems noted. Social History Housing: House Patient Tobacco Use Status: Never used Tobacco e-Cigarette/Vaping Use: Never Used Second Hand Smoke Exposure: No service: No Current occupational status: retired Cognitive needs: No Hearing needs: No Vision needs: Yes Questionnaire PHQ-9 Over the last 2 weeks, how often have you been bothered by any of the following problems? 1. Little interest or pleasure in doing things: not at all 2. Feeling down, depressed, or hopeless: not at all 3. Trouble falling or staying asleep, or sleeping too much: not at all 4. Feeling tired or having little energy: not at all 5. Poor appetite or overeating: not at all 6. Feeling bad about yourself - or that you are a failure or have let yourself o r your family down: not at all 7. Trouble concentrating on things, such as reading the newspaper or watching television: not at all 8. Moving or speaking so slowly that other people could have noticed. Or the opposite - being so fidgety or restless that you have been moving around a lot more than usual: not at all 9. Thoughts that you would be better off or of hurting yourself in some way: not at all Total score: 0 Depression Screening Interpretation: Negative Depression Screening Done: Yes 10193 - PHQ-9 Billing: Yes Source: Developed by Drs. Clark Olsen, Tracy Khoury, Harvinder hernandez nd colleagues, with an educational alexandra from [employer]. Thrive Questionnaire Date Thrive assessed: 01/13/24 I am a: Patient What is your living situation today?: I have a steady place to live Within the past 12 months, did the food you bought not last and you didn't have the money to get more?: I choose not to answer this question Within the past 12 months, did you worry whether your food would run out before you got money to buy more?: I choose not to answer this question Do you have trouble paying for medicines?: I choose not to answer this question Do you have trouble getting transportation to medical appointments?: I choose not to answer this question Do you have trouble paying your heating and electricity bill?: I choose not to answer this question Do you have trouble taking care of your child, family member or friend?: I choose not to answer this question Do you have trouble with day-to-day activities such as bathing, preparing meals, shopping, managing finances, etc.?: I choose not to answer this question Are you currently unemployed and looking for a job?: I choose not to answer this question Are you interested in more education?: I choose not to answer this question Please select the resources that you would like help with: None Currently or been in a relationship where the following occur: I choose not to answer THRIVE Score: 0 AUDIT C Alcohol Use Questionnaire (AUDIT-C) 1. How often do you have a drink containing alcohol?: Never Total Score: 0 DARLENE-7 AMB Questionnaire DARLENE-7 Date DARLENE - 7 assessed: 01/13/24 Feeling nervous, anxious, or on edge: 0 = Not at all Not being able to stop or control worryin = Not at all Source: Developed by Drs. Clark Olsen, Tracy Khoury, Harvinder Mullins and colleagues, with an educational alexandra from [employer]. Review of Systems Const All systems reviewed & are unremarkable except as noted in HPI and below ENT Reports no additional complaints Card Reports no additional complaints Resp Reports no additional complaints GI Reports no additional complaints Reports no additional complaints Physical exam (Primary Care) Vital Signs: Last Vital Signs Pulse 94 06/22/24 13:03 BP 126/70 06/22/24 13:03 Pulse Ox 95 06/22/24 13:03 Oxygen Delivery Method Room Air 06/22/24 13:03 BMI result Body Mass Index 23.2 Tobacco/Smoking Status: Tobacco use Status Tobacco use date assessed 06/22/24 06/22/24 13:09 Patient Tobacco Use Status Never used Tobacco 06/22/24 13:09 e-Cigarette/Vaping Use Never Used 06/22/24 13:09 PHQ-9: PHQ-9 Score PHQ-9: Total score 0 06/22/24 14:41 Depression Screening Interpretation: Negative Thrive Assessment: Date of Thrive Assessment Date Thrive assessed 01/13/24 06/22/24 13:09 Currently or been in a relationship where the following occur: I choose not to answer Const General: no acute distress HENMT Teeth and gingiva: dentition normal Neck Neck: Yes no lymphadenopathy and Yes supple Resp Effort & Inspection: normal respiratory effort Auscultation: clear to auscultation bilaterally Cardio Rhythm: regular rhythm Heart sounds: S1 normal heart sound present and S2 normal heart sound present GI Inspection: Yes normal to inspection Palpation (GI): Soft to palpation Extrem Other: There is significantly decreased range of motion of left shoulder, anterior lateral aspect tenderness no soft tissue swelling Coding Level of Care Code Est Pt Level 4 (23497) Diagnoses HTN (hypertension) I10 Hyperlipidemia E78.5 Vitamin D deficiency E55.9 Annual physical exam Z00.00 Acute pain of left shoulder M25.512 Chronicity: acute Assessment & Plan Assessment & Plan (1) HTN (hypertension): Code(s): I10 - Essential (primary) hypertension Category: Medical Plan: Continue current medications (2) Hyperlipidemia: Code(s): E78.5 - Hyperlipidemia, unspecified Category: Medical Plan: Continue statin (3) Vitamin D deficiency: Code(s): E55.9 - Vitamin D deficiency, unspecified Category: Medical Plan: Continue vitamin-D (4) Annual physical exam: Code(s): Z00.00 - Encounter for general adult medical examination without abnormal findings Category: Medical Plan: Return for physical in 6 months (5) Left shoulder pain: Comment: XR DEFORMITY OF HUMERAL HEAD CONSISTENT WITH PRIOR FRACTURE, 06/18/24 refer to PT Code(s): M25.512 - Pain in left shoulder Category: Medical Qualifiers: Chronicity: acute Qualified Code(s): M25.512 - Pain in left shoulder Plan: Continue Tylenol p.r.n. increase range of motion and referred to physical therapy Orders: Orders Comprehensive [place]. Panel Fast 6 Months E55.9 - Vitamin D deficiency, unspecified, E78.5 - Hyperlipidemia, unspecified, I10 - Essential (primary) hypertension, Z00.00 - Encounter for general adult medical examination without abnormal findings Complete Blood Count Auto Diff 6 Months E55.9 - Vitamin D deficiency, unspecified, E78.5 - Hyperlipidemia, unspecified, I10 - Essential (primary) hypertension, Z00.00 - Encounter for general adult medical examination without abnormal findings TSH reflex Free T4 6 Months E55.9 - Vitamin D deficiency, unspecified, E78.5 - Hyperlipidemia, unspecified, I10 - Essential (primary) hypertension, Z00.00 - Encounter for general adult medical examination without abnormal findings Vitamin D 25-OH Total 6 Months E55.9 - Vitamin D deficiency, unspecified, E78.5 - Hyperlipidemia, unspecified, I10 - Essential (primary) hypertension, Z00.00 - Encounter for general adult medical examination without abnormal findings PT Evaluation and Treatment Today M25.512 - Pain in left shoulder Lipid Panel 6 Months E55.9 - Vitamin D deficiency, unspecified, E78.5 - Hyperlipidemia, unspecified, I10 - Essential (primary) hypertension, Z00.00 - Encounter for general adult medical examination without abnormal findings
== END 2024-06-22 14:51 | disposition home or self-care (01) ==
LOC: HO.HMCC 12:54
PROVIDERS: PCP Internal Medicine; Visit Provider Internal Medicine
DX: I10 Essential (primary) hypertension (principal); E78.5 Hyperlipidemia, unspecified; E55.9 Vitamin D deficiency, unspecified; Z00.00 Encounter for general adult medical examination without abnormal findings; M25.512 Pain in left shoulder

== ENCOUNTER 2024-11-14 13:20 | Outpatient (AMB) | payer MEDICARE, OTHER, SELFPAY ==
--- NOTE | 2024-11-14 13:55 | A.OFFVIS_ITS ---
Intake Vital Signs 11/14/24 13:59 Height 5 ft 4 in Weight 136 lb BMI 23.3 BP 130/82 Blood Pressure Location Rt brachial Position Sitting Respiration 18 Pulse 95 Pulse Source Pulse Oximeter Temp 99.0 F Temp Source Oral Pulse Oximetry (%) 98 Oxygen Delivery Method Room Air Intake Visit Reasons: SWV G0439 Allergies diclofenac Allergy (Unknown, Verified 11/14/24 13:59) Diarrhea penicillin V Allergy (Unknown, Verified 11/14/24 13:59) hives Clindamycin HCl Allergy (Unknown, Uncoded 11/14/24 13:59) upset stomach nausea Medication List - Last Reconciled 11/14/24 by Vidhya Bobby MD acitretin 10 mg PO DAILY apixaban (Eliquis) 5 mg PO BID atorvastatin 80 mg PO DAILY cadexomer iodine 0.9% (Iodosorb) 40 grams topical 2XW cetirizine (Zyrtec) PO DAILY fluoxetine 20 mg PO DAILY lisinopril 30 mg PO DAILY metoprolol tartrate 50 mg PO BID omeprazole 20 mg PO DAILY ruxolitinib 1.5% (Opzelura) appl topical HPI SWV G0439 HPI Details Initiated the conversation about Advanced Directives. Advanced Directives help? patients prepare for current and future decisions about their medical treatment? and place of care. Discussed with patient that it is a process where a patients? current condition and prognosis are reviewed, their wishes for information? regarding their illness are elicited, and likely medical dilemmas are presented? and options discussed. The form can be amended as needed, reviewed yearly and? make changes as needed IPPE/AWV ? year old presents? for her ? Annual? Wellness Visit, initial visit.? Medical / Social History Reviewed? Past Medical History ?Yes? . ? [place]? of Care / Care Team list updated ?Yes . ? Surgical/Hospitalization? History ?Yes . ? Current Medications? (including OTC and supplements) ?Yes . ? Family History ?Yes? . ? Tobacco? Control form ?Yes . ? AUDIT-C (Alcohol use) form? ?Yes . ? Illicit drug use in Social? History ?Yes . ? Current diagnosis of? depression? ?No ? Appropriate PHQ2/PHQ9? completed ?Yes . ? Data entered by ?Medical? Laser Machine Operator and reviewed by provider ? Fall Risk ? Fall? History? Have you had any falls with? injury in the past year? ?No . ? Have you had two or more? falls in the past year? ?No . ? Fall Risk Assessment: ?No? falls in the past year . ? HRA filled out by? the patient, reviewed by Provider and scanned. ? IPPE/AWV ? Balance? Romberg? ?Yes . ? Tandem? walk ?Yes . ? Walk and? Turn ?Yes . ? Rise from? sit to stand ?Yes . ?Vision? Corrective? lens ?Yes ? Vision? screen ? Up-to-date, has an appointment [] for vision? screening and glaucoma screening ?Hearing? Whisper? test ?pass .? Initiated the conversation about Advanced Directives. Advanced Directives help? patients prepare for current and future decisions about their medical treatment? and place of care. Discussed with patient that it is a process where a patients? current condition and prognosis are reviewed, their wishes for information? regarding their illness are elicited, and likely medical dilemmas are presented? and options discussed. The form can be amended as needed, reviewed yearly and? make changes as needed Written? Plan?Completed. See Patient? Documents. [facility] Medical History Anxiety Psoriasis Vitamin D deficiency Vitamin B 12 deficiency A-fib Burn of leg, left CVA (cerebral vascular accident) Uterine prolapse Hyperlipidemia HTN (hypertension) Surgical History No pertinent past surgical history Family History Father No problems noted. Mother No problems noted. Social History Housing: House Patient Tobacco Use Status: Never used Tobacco e-Cigarette/Vaping Use: Never Used Second Hand Smoke Exposure: No service: No Current occupational status: retired Cognitive needs: No Hearing needs: No Vision needs: Yes Questionnaire Medicare Wellness Checkup [age] What gender do you identify with?: female During the past 4 weeks, how much have you been bothered by emotional problems such as feeling anxious, depressed, irritable, sad or downhearted, and blue?: slightly During the past 4 weeks, has your physical & emotional health limited your social activities with family, friends, neighbors, or groups?: not at all During the past 4 weeks, how much bodily pain have you generally had?: mild pain During the past 4 weeks, was someone available to help you if you needed & wanted help?: no, not at all During the past 4 weeks, what was the hardest physical activity you could do for at least 2 minutes?: very heavy Can you get to places out of walking distance without help? (For eg., can you travel alone on buses, taxis or drive your car?): No Can you go shopping for groceries or clothes without someone's help?: No Can you prepare your own meals?: Yes Can you do your housework without help?: Yes Because of any health problems, do you need the help of another person with your personal care needs such as eating, bathing, dressing or getting around the house?: No Can you handle your own money without help?: Yes During the past 4 weeks, how would you rate your health in general?: very good During the past 4 weeks how have things been going for you?: pretty well Are you having difficulties driving your car?: no Do you always fasten your seat belt when you are in a car?: yes, usually During past 4 weeks, have you been bothered by the following: never: Falling or dizzy when standing up, Sexual problems?, Trouble eating well?, Teeth or denture problems?, Problems using the telephone? and Tiredness or fatigue? Have you fallen 2 or more times in the past year?: No Are you afraid of falling?: No Are you a smoker?: no During the past 4 weeks, how many drinks of wine, beer, or other alcoholic beverages did you have?: no alcohol at all Do you exercise for about 20 minutes 3 or more times a week?: yes, most of the time Have you been given information to help with the following?: yes: Hazards in yo ur house that might hurt you? and no: Keeping track of your medications? How often do you have trouble taking medicines the way you have been told to take them?: I always take medicine as prescribed How confident are you that you can control & manage most of your health problems?: very confident What is your race?: White Mini Mental State Exam (MMSE) Orientation What is the (year) (season) (date) (day) (month)?: year, season, date, day and month Where are we (state) (county) (town or city) (hospital) (floor)?: state, county, town or city, hospital/clinic and floor Registration Name of 3 unrelated objects clearly and slowly, then ask patient to repeat all 3 of them. (1st repeat determines score. Make sure they can repeat all three): object 1, object 2 and object 3 Attention & Calculation (CHOOSE ONE) Spell WORLD backwards (DLROW): 5 letters Recall Ask patient to repeat the 3 items from question #3.: object 1, object 2 and object 3 Language Show patient a wristwatch & ask what it is. Repeat for pencil.: watch and pencil Ask the patient to repeat the phrase 'No ifs, ands, or buts' after you.: correct Ask the patient to 'take a piece of paper with their right hand' 'fold paper in half' 'place paper on floor': take paper in right hand, fold paper in half and place paper on floor Print the sentence 'CLOSE YOUR EYES' on a piece. If patient actually closes eyes then score.: followed written direction Give patient a blank piece of paper & ask to write a sentence. Score if it contains a noun & verb.: sentence contains subject and verb Score Score: 29 PHQ-9 Over the last 2 weeks, how often have you been bothered by any of the following problems? 1. Little interest or pleasure in doing things: not at all 2. Feeling down, depressed, or hopeless: not at all 3. Trouble falling or staying asleep, or sleeping too much: not at all 4. Feeling tired or having little energy: not at all 5. Poor appetite or overeating: not at all 6. Feeling bad about yourself - or that you are a failure or have let yourself or your family down: not at all 7. Trouble concentrating on things, such as reading the newspaper or watching television: not at all 8. Moving or speaking so slowly that other people could have noticed. Or the opposite - being so fidgety or restless that you have been moving around a lot more than usual: not at all 9. Thoughts that you would be better off or of hurting yourself in some way: not at all Total score: 0 Depression Screening Interpretation: Negative Depression Screening Done: Yes 90057 - PHQ-9 Billing: Yes Source: Developed by Drs. Clark Olsen, Tracy Khoury, Harvinder Mullins and colleagues, with an educational alexandra from [employer]. Review of Systems Const All systems reviewed & are unremarkable except as noted in HPI and below Reports no additional complaints Eyes Reports no additional complaints ENT Reports no additional complaints Card Reports no additional complaints Resp Reports no additional complaints GI Reports no additional complaints Reports no additional complaints Musc Reports no additional complaints Skin/Breast Reports system reviewed and no additional complaints, except as documented Physical Exam Vital Signs: Last Vital Signs Temp 99.0 F 11/14/24 13:59 Pulse 95 11/14/24 13:59 Resp 18 11/14/24 13:59 BP 130/82 11/14/24 13:59 Pulse Ox 98 11/14/24 13:59 Oxygen Delivery Method Room Air 11/14/24 13:59 BMI result Body Mass Index 23.3 Const General: no acute distress HEENT Head: Yes normal to inspection Ears: hearing grossly normal bilaterally Neck Neck: Yes no lymphadenopathy and Yes supple Resp Effort & Inspection: normal respiratory effort Auscultation: clear to auscultation bilaterally Cardio Rhythm: regular rhythm Heart sounds: S1 normal heart sound present and S2 normal heart sound present GI Inspection: Yes normal to inspection Palpation (GI): Soft to palpation Percussion: Yes normal to percussion Auscultation: normal bowel sounds Extrem General: Yes no clubbing, cyanosis or edema Assessment & Plan Assessment & Plan (1) HTN (hypertension): Code(s): I10 - Essential (primary) hypertension Plan: Continue lisinopril and metformin (2) Hyperlipidemia: Code(s): E78.5 - Hyperlipidemia, unspecified Plan: Continue statin (3) A-fib: Code(s): I48.91 - Unspecified atrial fibrillation Plan: Rate controlled on metoprolol and anticoagulated on Eliquis (4) Vitamin D deficiency: Code(s): E55.9 - Vitamin D deficiency, unspecified Plan: Continue vitamin-D supplement Orders: Orders Comprehensive [place]. Panel Fast 6 Months E55.9 - Vitamin D deficiency, unspecified, E78.5 - Hyperlipidemia, unspecified, I10 - Essential (primary) hypertension, I48.91 - Unspecified atrial fibrillation Lipid Panel 6 Months E55.9 - Vitamin D deficiency, unspecified, E78.5 - Hyperlipidemia, unspecified, I10 - Essential (primary) hypertension, I48.91 - Unspecified atrial fibrillation TSH reflex Free T4 6 Months I48.91 - Unspecified atrial fibrillation Complete Blood Count Auto Diff 6 Months E55.9 - Vitamin D deficiency, unspecified, E78.5 - Hyperlipidemia, unspecified, I10 - Essential (primary) hypertension, I48.91 - Unspecified atrial fibrillation Vitamin D 25-OH Total 6 Months E55.9 - Vitamin D deficiency, unspecified, E78.5 - Hyperlipidemia, unspecified, I10 - Essential (primary) hypertension, I48.91 - Unspecified atrial fibrillation Medications: Refilled atorvastatin 80 mg PO DAILY 90 tabs 3RF fluoxetine 20 mg PO DAILY 90 caps 3RF lisinopril 30 mg PO DAILY 90 tabs 3RF omeprazole 20 mg PO DAILY 90 caps 3RF K21.9 - Gastro-esophageal reflux disease without esophagitis metoprolol tartrate 50 mg PO BID 180 tabs 3RF I10 - Essential (primary) hypertension apixaban (Eliquis) 5 mg PO BID 180 tabs 3RF I63.9 - Cerebral infarction, unspecified Quality Reporting (2019) Depression/Bipolar (159/160/161/177) PHQ-9: Total score: 0 Coding Level of Care Code Medicare Subsequent (G0439) Diagnoses HTN (hypertension) I10 Hyperlipidemia E78.5 A-fib I48.91 Vitamin D deficiency E55.9 CPT Codes Advance Care Planning - Advance Care Planning discussion: On file, no changes ([id number]) Advance Care Planning - Time spent: 1-15 minutes, on File ([id number]) Additional Codes PHQ-9 - 32825 - PHQ-9 Billing: Yes ([id number]) Advance Care Planning Advance Care Planning discussion: On file, no changes Forms completed: Health Care Proxy Time spent: 1-15 minutes, on File Did not discuss due to Cultural/Spiritual beliefs: Yes
[2024-11-14 13:59] VITALS: BP 130/82; PULSE 95; RESP 18; TEMP 37.2; O2SAT 98; BMI 23.3
== END 2024-11-14 14:27 | disposition home or self-care (01) ==
LOC: HO.HMCC 13:21
PROVIDERS: PCP Internal Medicine; Visit Provider Internal Medicine
DX: Z00.00 Encounter for general adult medical examination without abnormal findings (principal); I48.91 Unspecified atrial fibrillation; I10 Essential (primary) hypertension; E78.5 Hyperlipidemia, unspecified; E55.9 Vitamin D deficiency, unspecified

== ENCOUNTER → 2024-11-14 13:20 | Outpatient (BNVA) | payer MEDICARE, OTHER, SELFPAY | PROVIDERS: PCP Internal Medicine; Visit Provider Internal Medicine | DX: Z00.00 Encounter for general adult medical examination without abnormal findings (principal); E55.9 Vitamin D deficiency, unspecified; I10 Essential (primary) hypertension; E78.5 Hyperlipidemia, unspecified; I48.91 Unspecified atrial fibrillation | CPT/HCPCS: 96127 ==

== ENCOUNTER 2025-05-10 11:42 | Outpatient (REF) | payer MEDICARE, OTHER, SELFPAY ==
--- OUTSIDE RECORDS SUMMARY | 2024-09-17 10:45 | XMS_ITS ---
Author Organization [facility] Address [address] [place] [address] Care Team Providers Care Flue Cleaner Name Role Phone Kanu CAMARENA, Vidhya Primary Care Provider Rakesh Jones Unavailable [phone] Allergies Allergen (clinical drug ingredient) Drug/Non Drug Allergy documented on EMR Reaction Allergy Type Onset Date Status apremilast Otezla diarrhea, nausea Drug Allergy Active Penicillin hives Drug Allergy Active Encounters Encounter Location Date Provider Diagnosis [address] [address] 09/17/2024 Rakehs Hector Plan Of Treatment Next Appt Details Provider Name:Rakesh Hector , 07/10/2025 11:15:00 AM, [address] [place] [address], [phone], Progress Notes * GILMarisa BELTRAN HDOB:1945 (80 yo F)Acc No.[id number]:09/17/2024 Progress Note Patient: Marisa DOVER Provider: Srinivas Hector DPM :1945 A ge:79 Y S ex:Female Date:09/17/2024 Address:[address] [place] [address] Pcp:Vidhya Bobby MD Subjective: * Chief Complaints: * * Medical History: C ataracts, High blood pressure, Stroke - Left, CAD. * Allergies: P enicillin: hives, Otezla: diarrhea, nausea. Objective: * Vitals: Assessment: Plan: * Treatment: * Images: * The named appointment provid er may or may not be the originator of this progress note, and it is not deemed complete until electronically signed by the appointment provider. Sign off status: Pending * Provider: Srinivas Hector DPM Date: 0 09/17/2024 Generated for Ricardo Gutierrez on: 0 05/10/2025 12:13 PM EDT
--- OUTSIDE RECORDS SUMMARY | 2025-05-10 12:13 | XMS_ITS | Encounter Summary ---
Author Organization [facility] Address [address] [place] [address] Phone Care Team Providers Care Infrastructure Project Manager Name Role Phone Vidhya Bobby MD Primary Care Provider [phone] Vidhya Bobby MD Primary Care Provider [phone] Vidhya Bobby MD Unavailable [phone] Patito Sheehan MD Unavailable + Encounter Details Date Type Department Care Team (Late st Contact Info) Description 09/12/2020 [place] [facility] [place] [address], [address] [place] [address] Social History Tobacco Use Types Packs/Day Years Used Date Smoking Tobacco: Never Smokeless Tobacco: Never Alcohol Use Standard Drinks/Week Comments Never 0 (1 standard drink = 0.6 oz pur e alcohol) Comments Unknown Sex and Gender Information Value Date Recorded Sex Assigned at Not on file Legal Sex Female 2:27 PM EST Gender Identity Not on file Sexual Orientation Not on file documented as of this encounter Plan of Treatment Not on file documented as of this encounter Visit Diagnoses Not on filedocumented in this encounter Additional Health Concerns Infection Onset Date Last Indicated Resolved Time CoV-Exposed Comment:Added per Home Health documentation 11/19/2020 11/20/2020 12/04/2020 1:24 AM E DT documented as of this encounter Care Teams Infrastructure Project Manager Relationship Specialty Start Date End Date Vidhya Bobby MD [address] [place] [address] PCP - General Internal Medicine 09/05/20 10/23/23 Vidhya Bobby MD [address] [place] [address] PCP - General Internal Medicine 10/24/23 Vidhya Bobby MD [address] [place] [address] Internal Medicine 10/24/23 Patito Sheehan MD [address] [place] [address] [email or web address] 12/15/20 documented as of this encounter Additional Source Comments The information contained in this document represents components of the legal health record. It is not the complete legal health record.[facility]
--- OUTSIDE RECORDS SUMMARY | 2025-05-10 12:13 | XMS_ITS | Patient Health Record ---
[facility] Address [address] [place] [address] Care Team Providers Care Field Service Analyst Name Role Phone Vidhya Bobby MD Primary Care Provider Unavaila Rakesh Arevalo Unavailable [phone] Elio Larsen Unavailable [phone] Allergies Allergen (clinical drug ingredient) Drug/Non Drug Allergy documented on EMR Reaction Allergy Type Onset Date Status apremilast Otezla diarrhea, nausea Drug Allergy Active Penicillin hives Drug Allergy Active Reason For Referral No Information Medications Medication SIG (Take, Route, Frequency, Duration) Notes Start Date End Date Status Omeprazole 20 MG 1 capsule 30 minutes before morning meal Orally Once a day; Duration: 30 day(s) Active Metoprolol Succinate 50 MG 1 capsule Ora lly Once a day; Duration: 30 day(s) Active Senna 8.6 MG 2 tablets at bedtime as needed Orally Once a day; Duration: 30 day(s) Active Polyethylene Glycol 3350 17 GM 1 packet mixed with 8 ounces of fluid Orally Once a day; Duration: 30 day(s) Active Acetaminophen 325 MG 1 tablet as needed Orally every 4 hrs Active Tamsulosin HCl 0.4 MG 1 capsule Orally O nce a day; Duration: 30 day(s) Active Atorvastatin Calcium 40 MG 1 tablet Oral ly Once a day; Duration: 30 day(s) Active Apixaban 5 MG as directed Orally Active Fluoxetine Active Bactrim DS 800-160 MG 1 tablet Orally ev jong 12 hrs; Duration: 10 day(s) 03/18/2022 Not-Taking Aspirin 81 MG 1 tablet Orally Once a day; Duration: 30 day(s) Not-Taking Melatonin 5 MG 1 tablet in the evening Orally Once a day; Duration: 30 day(s) Active Lisinopril 30MG Active Immunizations Vaccine Route Administration Date Status Comme nts Influenza Unknown 06/08/2021 Administered Influenza Unknown 04/23/2024 Administered COVID-19 Pfizer BioNTech Vaccine Unknown 06/08/2021 Administered 1st 10/09/2020 2nd 10/30/2020 Social History Tobacco Use: Social History Observation Description Date Details (start date - stop date) Never Smoker NA - NA Tobacco use other than smoking: Question Answer Notes Are you an other tobacco user? No Tobacco Control (Standard) Question Answer Notes Tobacco use: Nonsmoker Additional Findings: Tobacco non-user Current no nsmoker AUDIT-C (Standard) Question Answer Notes Did you have a drink containing alcohol in the p ast year? No Points 0 Interpretation Negative Problems Problem Type SNOMED Code ICD Code Onset Dates Problem Status W/U Status Risk Notes Problem Bilateral atherosclerosis of arteries of lower limbs (disorder) ([id number] ) Atherosclerosis of little shell tribe artery of both lower extremities, with unspecified presence of clinical manifestation (I70.203) Active confirmed Vital Signs Heart Rate 76 /min 10/19/2024 Blood pressure diastolic 80 mm Hg 03/27/2025 Height 5 ft 4 in in 03/27/2025 Blood pressure systolic 135 mm Hg 03/27/2025 Weight 135 lbs 03/27/2025 BMI 23.17 kg/m2 03/27/2025 Procedures Procedure Date Ordered Date Performed Result Body Sit e 15587-ZDKREPZ NAIL, 6 OR MORE 06/20/2024 N/A 65065- Debride <25 sq cm 06/20/2024 N/A 92071-AJBI SKIN LESIONS, OVER 4 06/20/2024 N/A 29609-DVQCNDD NAIL, 6 OR MORE 10/19/2024 N/A 29478-HCKI SKIN LESIONS, OVER 4 10/19/2024 N/A 41426-IDTISOA NAIL, 6 OR MORE 12/24/2024 N/A 73630-OAKG SKIN LESIONS, OVER 4 12/24/2024 N/A 49501-TQJWEWH NAIL, 6 OR MORE 03/27/2025 N/A 75069-UWHQ SKIN LESIONS, OVER 4 03/27/2025 N/A Encounters Encounter Location Date Provider Diagnosis [facility] [address] [address] 06/20/2024 Rakesh Hector Atherosclerosis of n ative artery of both lower extremities, with unspecified presence of clinical manifestation I70.203 ; Onychomycosis B35.1 ; Pain of toe of right foot M79.674 ; Pain of toe of left foot M79.675 ; Skin ulcer of toe of left foot, limited to breakdown of skin L97.521 and Cellulitis of toe of left foot L03.[address] [address] 10/19/2024 Elio Larsen Atherosclerosis of n ative artery of both lower extremities, with unspecified presence of clinical manifestation I70.203 ; Onychomycosis B35.1 ; Pain of toe of right foot M79.674 and Pain of toe of left foot M79.[address] [address] 12/24/2024 Rakesh Hector Atherosclerosis of n ative artery of both lower extremities, with unspecified presence of clinical manifestation I70.203 ; Onychomycosis B35.1 ; Pain of toe of right foot M79.674 ; Pain of toe of left foot M79.675 ; Other hammer toe(s) (acquired), right foot M20.41 ; Arthritis of joint of lesser toe, right M19.071 ; Other hammer toe(s) (acquired), left foot M20.42 ; Arthritis of joint of lesser toe, left M19.072 and Subluxation of metatarsophalangeal joint of toe, initial encounter S93.149A [address] [address] 03/27/2025 Rakesh Hector Onychomycosis B35.1 ; Atherosclerosis of little shell tribe artery of both lower extremities, with unspecified presence of clinical manifestation I70.203 ; Pain of toe of right foot M79.674 and Pain of toe of left foot M79.675 [facility] [address] [place] [address] 09/17/2024 Rakesh Hector [address] [address] 03/27/2025 Rakesh Hector Assessments Encounter Date Diagnosis (ICD Code) Assessment Notes Treatment Notes Treatment Clinical Notes Section Notes 06/20/2024 Onychomycosis (ICD-1 0 - B35.1) 06/20/2024 Atherosclerosis of little shell tribe artery of both lower extremities, with unspecified presence of clinical manifestation (ICD-10 - I70.203) 10/19/2024 Onychomycosis (ICD-1 0 - B35.1) 10/19/2024 Atherosclerosis of little shell tribe artery of both lower extremities, with unspecified presence of clinical manifestation (ICD-10 - I70.203) 12/24/2024 Onychomycosis (ICD-1 0 - B35.1) 12/24/2024 Atherosclerosis of little shell tribe artery of both lower extremities, with unspecified presence of clinical manifestation (ICD-10 - I70.203) 03/27/2025 Onychomycosis (ICD-1 0 - B35.1) 03/27/2025 Atherosclerosis of little shell tribe artery of both lower extremities, with unspecified presence of clinical manifestation (ICD-10 - I70.203) 03/27/2025 Pain of toe of right foot (ICD-10 - M79.674) 12/24/2024 Pain of toe of right foot (ICD-10 - M79.674) 10/19/2024 Pain of toe of right foot (ICD-10 - M79.674) 06/20/2024 Pain of toe of right foot (ICD-10 - M79.674) 06/20/2024 Pain of toe of left foot (ICD-10 - M79.675) 10/19/2024 Pain of toe of left foot (ICD-10 - M79.675) 12/24/2024 Pain of toe of left foot (ICD-10 - M79.675) 03/27/2025 Pain of toe of left foot (ICD-10 - M79.675) 12/24/2024 Other hammer toe(s) (acquired), right foot (ICD-10 - M20.41) 06/20/2024 Skin ulcer of toe of left foot, limited to breakdown of skin (ICD-10 - L97.521) Response to treatment,Sarah pplicable Patient Educated with: WOUND CARE INSTRUCTIONS. pdf (WOUND CARE INSTRUCTIONS. pdf) 06/20/2024 Cellulitis of toe of left foot (ICD-10 - L03.032) 12/24/2024 Arthritis of joint o f lesser toe, right (ICD-10 - M19.071) 12/24/2024 Other hammer toe(s) (acquired), left foot (ICD-10 - M20.42) 12/24/2024 Arthritis of joint o f lesser toe, left (ICD-10 - M19.072) 12/24/2024 Subluxation of metatarsophalangeal joint of toe, initial encounter (ICD-10 - S93.149A) 06/20/2024 Other 10/19/2024 Other 12/24/2024 Other Plan Of Treatment Pending Test Test Name Order Date X ray : Foot, left 3V 03/18/2022 55980-PUZIYTY NAIL, 6 OR MORE 03/29/2022 97503-JHJFAZI NAIL, 6 OR MORE 05/12/2021 92295-CMXOYJF NAIL, 6 OR MORE 07/28/2021 97560-IUSOMJX NAIL, 6 OR MORE 11/24/2021 42856-VJKNEMG NAIL, 6 OR MORE 06/15/2022 01451-DMHFJPN NAIL, 6 OR MORE 08/31/2022 24753-STMKNMR NAIL, 6 OR MORE 11/12/2022 69247-RLAMHHV NAIL, 6 OR MORE 01/24/2023 46838-YMLGACR NAIL, 6 OR MORE 03/31/2023 76897-KUBLDAI NAIL, 6 OR MORE 06/09/2023 09405-VGVYWEH NAIL, 6 OR MORE 08/11/2023 51734-OPBMVYE NAIL, 6 OR MORE 10/27/2023 38858-TGQYJPP NAIL, 6 OR MORE 03/22/2024 76274-DBEVTQU NAIL, 6 OR MORE 06/20/2024 92731-HWLXJSB NAIL, 6 OR MORE 10/19/2024 96411-UHOLNTV NAIL, 6 OR MORE 12/24/2024 25056-CNDVYJC NAIL, 6 OR MORE 03/27/2025 52507-Ewkcjjlc Plate 03/22/2024 45656-Fftbunrt Plate 01/24/2023 45617-Wwaeyphl Plate 10/27/2023 06454-Yiohcoej Plate 11/24/2021 11214-Caltikxd Plate 07/28/2021 84393-Qenesufi Plate 05/12/2021 63187-Rvdzbxav Plate 03/29/2022 24581- Debride <25 sq cm 03/29/2022 08491- Debride <25 sq cm 06/20/2024 82076 I&D ABSCESS- SIMPLE,SINGLE 022 44890-XWBR SKIN LESIONS, OVER 4 11/25/19 75931-CYKY SKIN LESIONS, OVER 4 08/31/19 35375-LEKC SKIN LESIONS, OVER 4 06/15/20 20026-BHPV SKIN LESIONS, OVER 4 03/29/20 88726-FLVD SKIN LESIONS, OVER 4 03/22/20 41005-GDDV SKIN LESIONS, OVER 4 10/27/19 24 53823-UCAL SKIN LESIONS, OVER 4 08/11/20 44442-MSUU SKIN LESIONS, OVER 4 06/09/20 99358-IKSQ SKIN LESIONS, OVER 4 03/31/20 21076-MAEE SKIN LESIONS, OVER 4 01/25/20 74414-LXOD SKIN LESIONS, OVER 4 11/13/19 24847-POAW SKIN LESIONS, OVER 4 03/27/20 17857-WKUX SKIN LESIONS, OVER 4 12/25/19 12752-MWLN SKIN LESIONS, OVER 4 10/19/19 25 75362-GMPH SKIN LESIONS, OVER 4 06/20/20 24 79761-ZWHF SKIN LESIONS, 2 TO 4 05/12/20 60302-LIIK SKIN LESIONS, 2 TO 4 07/28/20 21 Next Appt Details Provider Name:Rakseh Busch Krunal , 07/10/2025 11:15:00 AM, [address] [facility], [facility] [address], [place], [address], Insurance Providers Payer Name Payer Address Payer Phone Subscriber Number Group Number Insured Name Patient Relationship to Insured Coverage Start Date Coverage End Date Medicare [facility] [address] [place] [address] [id number] Marisa Gil Self - patient is the insured for Life [address] [place] [phone] [id number] Marisa Gil Self - patient is the insured Medical (General) History Medical History History ICD Code Cataracts High blood pressure Stroke - Left CAD Surgical History Surgery Date(Month/Year) prolaspe 07/02/20 Hospitalization History Reason Date(Month/Year) [facility] - x-ray taken Fractured Tiffany marin 07/22/21
--- OUTSIDE RECORDS SUMMARY | 2025-05-10 12:13 | XMS_ITS | Clinical Summary ---
[facility] Address [address] [place] [address] Care Team Providers Care Supervisor Securities Vault Name Role Phone Unavailable Primary Care Provider Unavailabl e Social History Tobacco Use Types Packs/Day Years Used Date Smoking Tobacco: Never Assessed Comments Unknown Sex and Gender Information Value Date Recorded Sex Assigned at Not on file Legal Sex Female 1:09 AM EST Gender Identity Not on file Sexual Orientation Not on file Plan of Treatment Health Maintenance Due Date Last Done Comments DTaP,Tdap,and Td Vaccines (1 - Tdap) 02[birth year]20/1964 Pneumococcal Vaccine: 50+ Ye ars (1 of 1 - PCV) 1995 Zoster Vaccines (1 of 2) 1995 RSV Immunization Adult Patie nts (1 - 1-dose 75+ series) 02/20/2020 Depression Screening 08/22/2024 COVID-19 Vaccine ( - 2023-2 5 season) 2025 Influenza Vaccine (#1) 2025 HIB Vaccines Aged Out No longer eligi ble based on patient's age to complete this topic HPV Vaccines Aged Out No longer eligi ble based on patient's age to complete this topic Hepatitis A Vaccines Aged Out No long er eligible based on patient's age to complete this topic Hepatitis B Vaccines Aged Out No long er eligible based on patient's age to complete this topic IPV Vaccines Aged Out No longer eligi ble based on patient's age to complete this topic MMR Vaccines Aged Out No longer eligi ble based on patient's age to complete this topic Meningococcal ACWY Vaccine Aged Out N o longer eligible based on patient's age to complete this topic Meningococcal B Vaccine Aged Out No l onger eligible based on patient's age to complete this topic RSV Immunization Patients Un jazmyn 20 months Aged Out No longer eligible b ased on patient's age to complete this topic Varicella Vaccines Aged Out No longer eligible based on patient's age to complete this topic
[2025-05-10 13:39] LABS: MANUAL DIFF FLAG NO
[2025-05-10 13:42] LABS: Hematocrit 30.1 % (37.0-47.0); Hemoglobin 9.1 g/dl (12.0-16.0); Imm Gran Abs Auto 0.02 X10*3/uL (0.00-0.03); Imm Gran Pct Auto 0.3 % (0.0-0.4); Lymphocytes Absolute Auto 0.6 X10*3/uL (1.2-4.9); Mean Corpuscular HGB Conc 30.2 g/dl (31.0-35.0); Mean Corpuscular Hemoglobin 26.8 pg (27.0-33.0); Mean Corpuscular Volume 88.8 fL (80.0-98.0); NRBC Abs Auto 0.000 X10*3/uL (0.0-0.012); NRBC Pct Auto 0.0 /100WBC (0.0-0.2); Platelet Count 346 X10*3/uL (160-400); Red Blood Count 3.39 X10*6/uL (4.20-5.50); White Blood Count 6.4 X10*3/uL (4.8-10.8)
[2025-05-10 14:01] LABS: Alanine Aminotransferase 11 U/L (0-31); Albumin Level 4.2 g/dL (3.5-5.0); Alkaline Phosphatase 121 U/L (39-117); Anion Gap 11 (12-20); Aspartate Amino Transferase 29 U/L (5-31); Blood Urea Nitrogen 20 mg/dL (9-16); Calcium 9.2 mg/dL (8.4-10.2); Carbon Dioxide 26 mmol/L (22-29); Chloride 107 mmol/L (96-108); Cholesterol 107 mg/dL (<200); Estimated Glomerular Filt Rate > 60; HDL Cholesterol 32 mg/dL (>40); Potassium 4.3 mmol/L (3.3-5.1); Sodium 140 mmol/L (135-145); Total Protein 7.3 g/dL (6.5-8.0); Triglycerides 77 mg/dL (<150)
== END 2025-05-10 11:43 | disposition home or self-care (01) ==
LOC: HO.HMGCLDS 11:42
PROVIDERS: PCP Internal Medicine; Visit Provider Internal Medicine
DX: I10 Essential (primary) hypertension (principal); I48.91 Unspecified atrial fibrillation; E55.9 Vitamin D deficiency, unspecified; E78.5 Hyperlipidemia, unspecified
CPT/HCPCS: 36415; 80053; 80061; 82306; 84443; 85025

== ENCOUNTER 2025-05-17 13:47 | Outpatient (REF) | payer MEDICARE, OTHER, SELFPAY ==
[2025-05-17 16:22] LABS: Iron 19 mcg/dL (30-160); Percent Iron Saturation 5 % (15-50); Total Iron Binding Capacity 362 mcg/dL (228-428); Unsaturated Iron Binding 343 ug/dL
[2025-05-17 16:57] LABS: Folate 12.1 ng/mL (> or = 4.0); Vitamin B12 381 pg/mL (200-900)
== END 2025-05-17 13:48 | disposition home or self-care (01) ==
LOC: HO.HMGCLDS 13:47
PROVIDERS: PCP Internal Medicine; Visit Provider Internal Medicine
DX: I10 Essential (primary) hypertension (principal); F41.9 Anxiety disorder, unspecified; D64.9 Anemia, unspecified; I48.91 Unspecified atrial fibrillation; I63.9 Cerebral infarction, unspecified; Z79.01 Long term (current) use of anticoagulants; Z79.899 Other long term (current) drug therapy
CPT/HCPCS: 36415; 82607; 82746; 83540; 96127; 99212

== ENCOUNTER 2025-05-17 13:47 | Outpatient (AMB) | payer MEDICARE, OTHER, SELFPAY ==
--- OUTSIDE RECORDS SUMMARY | 2024-09-17 10:45 | XMS_ITS ---
Author Organization [facility] Address [address] [place] [address] Care Team Providers Care Rectangular Tank Cooper Name Role Phone Kanu CAMARENA, Vidhya Primary Care Provider Rakesh Jones Unavailable [phone] Allergies Allergen (clinical drug ingredient) Drug/Non Drug Allergy documented on EMR Reaction Allergy Type Onset Date Status apremilast Otezla diarrhea, nausea Drug Allergy Active Penicillin hives Drug Allergy Active Encounters Encounter Location Date Provider Diagnosis [address] [address] 09/17/2024 Rakesh Hector Plan Of Treatment Next Appt Details Provider Name:Rakesh Hector , 07/10/2025 11:15:00 AM, [address] [place] [address], [phone], Progress Notes * GILMarisa BELTRAN HDOB:1945 (80 yo F)Acc No.[id number]:09/17/2024 Progress Note Patient: Marisa DOVER Provider: Srinivas Hector DPM :1945 A ge:79 Y S ex:Female Date:09/17/2024 Address:[address] [place] [address] Pcp:Vidhya Bobby MD Subjective: * Chief Complaints: [...] Pending * Provider: Srinivas Hector DPM Date: 09/17/2024 Generated for Ricardo Gutierrez on: 0 05/17/2025 02:59 PM EDT
[2025-05-17 13:55] VITALS: BP 130/78; PULSE 93; RESP 18; TEMP 36.7; O2SAT 97; BMI 23.3
--- NOTE | 2025-05-17 13:55 | A.OFFPC_ITS ---
Vital Signs 05/17/25 13:55 Height 5 ft 4 in Weight 136 lb BMI 23.3 BP 130/78 Blood Pressure Location Rt brachial Position Sitting Respiration 18 Pulse 93 Pulse Source Pulse Oximeter Temp 98.0 F Temp Source Oral Pulse Oximetry (%) 97 Oxygen Delivery Method Room Air Intake Visit Reasons: 6m follow up Intake Note: Pt is here today for 6 months follow up visit. Allergies diclofenac Allergy (Unknown, Verified 05/17/25 14:01) Diarrhea penicillin V Allergy (Unknown, Verified 05/17/25 14:01) hives Clindamycin HCl Allergy (Unknown, Uncoded 05/17/25 14:01) upset stomach nausea Medication List - Last Reconciled 05/17/25 by Vidhya Bobby MD acitretin 10 mg PO DAILY apixaban (Eliquis) 5 mg PO BID atorvastatin 80 mg PO DAILY cadexomer iodine 0.9% (Iodosorb) 40 grams topical 2XW cetirizine (Zyrtec) PO DAILY fluoxetine 20 mg PO DAILY lisinopril 30 mg PO DAILY metoprolol tartrate 50 mg PO BID omeprazole 20 mg PO DAILY ruxolitinib 1.5% (Opzelura) appl topical Tobacco use date assessed: 05/17/25 Fall risk assessment: No Falls in past year Last assessed Fall Risk: 05/17/25 Dental Screening Dental Screen Date: 05/17/25 Did you have a dental visit in the last 12 months?: No Did you have a dental problem in the last 6 months where you did not have access to dental care?: No Was dental information given to patient?: Patient declined HPI 6m follow up HPI Details Patient presents for the follow-up hypertension hyperlipidemia chronic anxiety stable on fluoxetine. [facility] Medical History (Updated 05/17/25 @ 19:44 by Vidhya Bobby MD) Anemia Anxiety Psoriasis Vitamin D deficiency Vitamin B 12 deficiency A-fib Burn of leg, left CVA (cerebral vascular accident) Uterine prolapse Hyperlipidemia HTN (hypertension) Surgical History No pertinent past surgical history Family History Father No problems noted. Mother No problems noted. Social History (Reviewed 05/17/25 @ 14:02 by JAVID Khan Housing: House Patient Tobacco Use Status: Never used Tobacco e-Cigarette/Vaping Use: Never Used Second Hand Smoke Exposure: No service: No Current occupational status: retired Cognitive needs: No Hearing needs: No Vision needs: Yes Questionnaire PHQ-9 Over the last 2 weeks, how often have you been bothered by any of the following problems? 1. Little interest or pleasure in doing things: not at all 2. Feeling down, depressed, or hopeless: not at all 3. Trouble falling or staying asleep, or sleeping too much: not at all 4. Feeling tired or having little energy: not at all 5. Poor appetite or overeating: not at all 6. Feeling bad about yourself - or that you are a failure or have let yourself or your family down: not at all 7. Trouble concentrating on things, such as reading the newspaper or watching television: not at all 8. Moving or speaking so slowly that other people could have noticed. Or the opposite - being so fidgety or restless that you have been moving around a lot more than usual: not at all 9. Thoughts that you would be better off or of hurting yourself in some way: not at all Total score: 0 Depression Screening Interpretation: Negative Depression Screening Done: Yes Source: Developed by Drs. Clark Olsen, Tracy Khoury, Harvinder Mullins and colleagues, with an educational alexandra from [employer]. Thrive Questionnaire Date Thrive assessed: 05/17/25 I am a: Patient What is your living situation today?: I have a steady place to live Within the past 12 months, did the food you bought not last and you didn't have the money to get more?: Never true Within the past 12 months, did you worry whether your food would run out before you got money to buy more?: Never true Do you have trouble paying for medicines?: No Do you have trouble getting transportation to medical appointments?: No Do you have trouble paying your heating and electricity bill?: No Do you have trouble taking care of your child, family member or friend?: No Do you have trouble with day-to-day activities such as bathing, preparing meals, shopping, managing finances, etc.?: No Are you currently unemployed and looking for a job?: No Are you interested in more education?: No Please select the resources that you would like help with: None Currently or been in a relationship where the following occur: No concerns reported THRIVE Score: 0 AUDIT C Alcohol Use Questionnaire (AUDIT-C) 1. How often do you have a drink containing alcohol?: Never 3. How often do you have six or more drinks on one occasion?: Never Total Score: 0 DARLENE-7 AMB Questionnaire DARLENE-7 Date DARLENE - 7 assessed: 05/17/25 Feeling nervous, anxious, or on edge: 0 = Not at all Not being able to stop or control worryin = Not at all Worrying too much about different things: 0 = Not at all Trouble relaxin = Not at all Being so restless that it is hard to sit still: 0 = Not at all Becoming easily annoyed or irritable: 0 = Not at all Feeling afraid as if something awful might happen: 0 = Not at all Total DARLENE-7 score (0-4 normal; 5-9 mild; 10-14 moderate; 15-21 severe): 0 Source: Developed by Drs. Clark Olsen, Tracy Khoury, Harvinder Mullins and colleagues, with an educational alexandra from [employer]. DARLENE-7 Assessment Billing DARLENE-7 Assessment Tool: DARLENE-7 Assessment 33024 Review of Systems Const All systems reviewed & are unremarkable except as noted in HPI and below Eyes Reports no additional complaints ENT Reports no additional complaints Card Reports no additional complaints Resp Reports no additional complaints GI Reports no additional complaints Reports no additional complaints Physical exam (Primary Care) Vital Signs: Last Vital Signs Temp 98.0 F 05/17/25 13:55 Pulse 93 05/17/25 13:55 Resp 18 05/17/25 13:55 Pulse Ox 97 05/17/25 13:55 Oxygen Delivery Method Room Air 05/17/25 13:55 BMI result Body Mass Index 23.3 Tobacco/Smoking Status: Tobacco use Status Tobacco use date assessed 05/17/25 05/17/25 14:02 Patient Tobacco Use Status Never used Tobacco 05/17/25 14:02 e-Cigarette/Vaping Use Never Used 05/17/25 13:56 PHQ-9: PHQ-9 Score PHQ-9: Total score 0 05/17/25 14:02 Depression Screening Interpretation: Negative Thrive Assessment: Date of Thrive Assessment Date Thrive assessed 05/17/25 05/17/25 13:56 Currently or been in a relationship where the following occur: No concerns reported Const General: no acute distress HENMT Head: Yes normal to inspection Mouth: Normal oral and palatal mucosa present Eyes General: appearance normal, both eyes and all related structures Neck Neck: Yes no lymphadenopathy and Yes supple Resp Effort & Inspection: normal respiratory effort Auscultation: clear to auscultation bilaterally Cardio Rhythm: regular rhythm Heart sounds: S1 normal heart sound present and S2 normal heart sound present GI Inspection: Yes normal to inspection Palpation (GI): Soft to palpation Percussion: Yes normal to percussion Auscultation: normal bowel sounds Coding Level of Care Code Est Pt Level 4 (65072) Diagnoses CVA (cerebral vascular accident) I63.9 HTN (hypertension) I10 A-fib I48.91 Anxiety F41.9 Anemia D64.9 Additional Codes DARLENE-7 Assessment Billing - DARLENE-7 Assessment Tool: DARLENE-7 Assessment 07089 ([id number]) Assessment & Plan Assessment & Plan (1) CVA (cerebral vascular accident): Comment: 09/01/20 with LEFT-SIDED WEAKNESS Code(s): I63.9 - Cerebral infarction, unspecified Category: Medical Plan: Patient is ambulating with a walker (2) HTN (hypertension): Code(s): I10 - Essential (primary) hypertension Category: Medical Plan: Continue current medications (3) A-fib: Comment: Rate controlled on metoprolol and anticoagulated on Eliquis Code(s): I48.91 - Unspecified atrial fibrillation Category: Medical Plan: Continue current medications (4) Anxiety: Code(s): F41.9 - Anxiety disorder, unspecified Category: Medical Plan: Controlled on fluoxetine, follow-up in 6 months with a fasting labs before (5) Anemia: Comment: Iron def Code(s): D64.9 - Anemia, unspecified Category: Medical Plan: Check iron studies Orders: Orders IRON PROFILE 6 Months D64.9 - Anemia, unspecified, I10 - Essential (primary) hypertension, I48.91 - Unspecified atrial fibrillation Complete Blood Count Auto Diff 6 Months D64.9 - Anemia, unspecified, I10 - Essential (primary) hypertension, I48.91 - Unspecified atrial fibrillation Comprehensive [place]. Panel Fast 6 Months D64.9 - Anemia, unspecified, I10 - Essential (primary) hypertension, I48.91 - Unspecified atrial fibrillation
--- OUTSIDE RECORDS SUMMARY | 2025-05-17 14:59 | XMS_ITS | Clinical Summary ---
[facility] Organization [facility] Address [address] [place] [address] Care Team Providers Care Oil Gauger Name Role Phone Unavailable Primary Care Provider [...]
--- OUTSIDE RECORDS SUMMARY | 2025-05-17 14:59 | XMS_ITS | Clinical Summary ---
Author Organization [facility] Address [address] [address] Phone Care Team Providers Care Special Weapons And Tactics Officer Name Role Phone Vidhya Bobby MD Primary Care Provider [phone] Vidhya Bobby MD Unavailable [phone] Patito Sheehan MD Unavailable + Allergies Active Allergy Reactions Criticality Noted Date Comments Apremilast Diarrhea 07/26/2024 Penicillins Hives 09/10/2020 Medications senna (SENOKOT) 8.6 mg tablet Take 2 tablets by mouth daily as needed for constipation. 1 Active acetaminophen (TYLENOL) 325 mg tablet Take 2 tablets (650 mg total) by mouth every 6 (six) hours as needed for mild pain or fever. 0 1 Active apixaban (ELIQUIS) 5 mg tablet Take 1 tablet (5 mg total) by mouth 2 (two) times a day. 60 tablet 1 Active aspirin 81 mg chewable tablet Take 1 tablet (81 mg total) by mouth daily. 30 tablet 1 Active Additional Information Patient not taking.Reported on 10/26/2023 atorvastatin (LIPITOR) 40 MG tablet Take 1 tablet (40 mg total) by mouth nightly at bedtime. 30 tablet 1 Active FLUoxetine (PROZAC) 10 MG capsule Take 1 capsule (10 mg total) by mouth daily. 30 capsule 1 Active melatonin 5 mg Tab Take 1 tablet (5 mg total) by mouth nightly at bedtime. 30 tablet 1 Active metoprolol tartrate (LOPRESSOR) 50 MG tablet Take 1 tablet (50 mg total) by mouth 2 (two) times a day. 60 tablet 1 Active omeprazole (PRILOSEC) 20 MG capsule Take 1 capsule (20 mg total) by mouth daily before breakfast. 30 capsule 1 Active polyethylene glycol (MIRALAX) 17 gram packet Take 17 g by mouth daily as needed. 30 packet 1 Active tamsulosin (FLOMAX) 0.4 mg Cap Take 1 capsule (0.4 mg total) by mouth daily. 30 capsule 1 Active clobetasol (TEMOVATE) 0.05 % ointment Apply topically 2 (two) times a day. 60 g 1 4 Active acitretin (SORIATANE) 10 MG capsule Take two pills daily 180 capsule 4 Active Active Problems Problem Noted Date Diagnosed Date Pain 09/15/2020 Assessment & Plan (09/15/2020 11:38 AM EST): Complaining of left leg pain of unclear etiology. Seems to occur with movement. - Continue with tylenol as needed - Consider if patient need other medications regarding her pain. Impaired functional mobility, balance, gait, and endurance 09/10/2020 Assessment & Plan (10/02/2020 11:24 AM EST): Stroke rehabilitation: The patient is continued on her current rehabilitation program with PT, OT, and DIMENSION WAREHOUSE SUPERVISOR. The patient is participating with therapy. The patient was discussed in ITC meeting this morning. Please refer to the ITC notes for further information. [employer]HOUSE SUPERVISOR Functional Report (blank has not been reported this week) Metric Current Auditory Comprehension Deficit Verbal Expression Deficit Motor Speech Deficit (Trace) Attention Deficit Mild-moderate Memory Deficit Mild Problem Solving Deficit Mild-moderate Swallowing Deficit Mild-moderate Solids Dysphagia ground/diced(+ 1 advanced soft solid item per meal) Liquid Consistency Thin Meal Supervision Distant DIMENSION WAREHOUSE SUPERVISOR Comments:Pt with excellent participation in today's session which focused on swallowing and cognitive-linguistic skills. See d/c note for details. Dysphagia 09/10/2020 Assessment & Plan (10/02/2020 11:25 AM EST): The patient will be monitored for signs and symptoms of aspiration -Speech therapy will work with the patient and advance her diet as appropriate Current diet: Therapeutic trial tray per D[employer] WAREHOUSE SUPERVISOR Adult/Pediatric nutrition supplements Supplement: [facility]-Thrive ice cream strawberry; Number of servings: One; Frequency: Lunch, Dinner Adult/Pediatric nutrition supplements Supplement: [facility]-Ensure Enlive chocolate; Number of servings: One; Frequency: Breakfast Diet Dysphagia; Dysphagia ground/diced; Thin; Swallow safety instructions: Sit bolt upright/90 degrees, Standard aspiration precautions, Group/Distant Supervision, Slow rate, Alternate liquids and solids, Check vocal quality and clear throat as ne... At risk for alteration in bowel function 021 Assessment & Plan (10/02/2020 11:25 AM EST): The patient will be monitored for signs of constipation. Last BM Date: 10/02/20 -The patient will be started on as needed medications senna and dulcolax -The patient was started on omeprazole () for GI prophylaxis due to reflux- like symptoms and abdominal discomfort. The patient is also utilizing Maalox as needed At risk for deep venous thrombosis 09/10/2020 Assessment & Plan (10/02/2020 5:59 PM EST): The patient had been on heparin 3 times daily. Dopplers of the lower extremity were obtained and the patient has been noted to have a clot that is nonocclusive in the femoral. We will place a vascular medicine E consult and try and contact neurology regarding anticoagulation. -The patient is now on apixaban for anticoagulation. Urinary retention 09/10/2020 Assessment & Plan (09/29/2020 11:25 AM EST): The patient was noted to have urinary retention and a Fitzgerald catheter was placed. -Dc summary had mentioned doxazosin for urinary retention however not seen on DC med list. She did have an episode of hypotension and medications were stopped due to that. -Bladder scans q6 discontinued -The patient will be started on Flomax - completed a course of antibiotics for a UTI Essential hypertension 09/10/2020 Assessment & Plan (10/02/2020 11:24 AM EST): The patient's blood pressure will be monitored closely over the course of her stay. Current blood pressure range: (107-114)/(55-74) 107/70 (10/02 708) -Medicine is following to help optimize her blood pressure control -The patient is continued on metoprolol. -The patient had been on several other medications which were held. Doxazosin was held due to hypotension. Atrial fibrillation 09/10/2020 Assessment & Plan (10/02/2020 11:24 AM EST): The patient is currently on Metoprolol. Rate controlled. -Medicine is following to help optimize her medical management -continue to monitor the patient's heart rate [60-88] 60 (10/02 708) Acute right MCA stroke 09/10/2020 Assessment & Plan (09/29/2020 2:15 PM EST): The patient was found to have a right MCA territory infarct with a large ischemic penumbra with right M1 occlusion. She is status post thrombectomy complicated by hemorrhagic conversion and also found to be in new atrial fibrillation. -The patient is continued on aspirin, apixaban, and Lipitor for secondary stroke prophylaxis -We will need to clarify the dosage of the Lipitor as the discharge summary reported 80 mg of Lipitor however med list reported 40 mg -The patient was to have had a repeat CT scan of the head on 09/29/2020 per recommendations to determine if anticoagulation was need however CT scan of her head was performed early due to DVT. Found to be stable if not improved. Secondary to this neurology felt that the patient was safe to start apixaban. -The patient will need to follow-up with neurology as an outpatient Immunizations Immunization Administration Dates Next Due Pneumococcal conjugate PCV13 09/10/2020(Deferred : Patient Refused) Family History Medical History Relation Comments Stroke Mother Relation Status Comments Mother Social History Tobacco Use Types Packs/Day Years Used Date Smoking Tobacco: Never Smokeless Tobacco: Never Alcohol Use Standard Drinks/Week Comments Never 0 (1 standard drink = 0.6 oz pur e alcohol) Education Answer Date Recorded Are you interested in more education? Not on kam e 12/17/2022 Are you concerned about learning? Not on file 12/17/2022 No 12/17/2022 No 12/17/2022 Digital Access Answer Date Recorded No 01/15/2023 No 01/15/2023 No 01/15/2023 Reliable internet access at home? Not on file 01/15/2023 Device with a working camera? Not on file Comments Unknown Sex and Gender Information Value Date Recorded Sex Assigned at Not on file Legal Sex Female 2:27 PM EST Gender Identity Not on file Sexual Orientation Not on file Last Filed Vital Signs Vital Sign Reading Time Taken Comments Blood Pressure 160/85 01/07/2021 11:35 AM EDT Pulse 80 01/07/2021 11:35 AM EDT Temperature 36.3 C (97.3 F) 12/11/2020 10:44 AM EDT Respiratory Rate 16 01/07/2021 11:35 AM EDT Oxygen Saturation 97% 01/07/2021 11:35 AM EDT Inhaled Oxygen Concentration - - Weight 68 kg (150 lb) 12/15/2020 3:06 PM EDT Height 162.6 cm (5' 4 ) 12/15/2020 3:06 PM EDT Body Mass Index 25.75 12/15/2020 3:06 PM EDT Plan of Treatment Health Maintenance Due Date Last Done Comments Adult Td,Tdap Booster 1945 BLOOD PRESSURE 1945 DEPRESSION SCREENING 1957 ZOSTER VACCINES (1 of 2) 1995 OSTEOPOROSIS SCREENING INITIAL (ONE-TIME) 2010 PNEUMOCOCCAL VACCINES (50+ years) (2 of 2 - PCV) 09/18/2011 09/18/2010 RSV VACCINE (1 - 1-dose 75+ series) 02/20/2020 CREATININE LEVEL 03/19/2025 03/19/2024, , 09/29/2020, Additional history exists INFLUENZA VACCINE (#1) 2025 07/18/2020, 2017 COVID-19 VACCINE (2024- season) 2025 10/30/2020, 10/09/2020 SMOKING STATUS SCREENING (Once After 26 Yrs) Completed 12/15/2020 HEPATITIS A VACCINES Aged Out No long er eligible based on patient's age to complete this topic HIB VACCINES Aged Out No longer eligi ble based on patient's age to complete this topic MENINGOCOCCAL VACCINES (ACWY) Aged Out No longer eligible based on patient's age to complete this topic MENINGOCOCCAL VACCINES (B) Aged Out N o longer eligible based on patient's age to complete this topic Medical Devices Not on file Procedures Procedure Name Priority Date/Time Associated Diagnosis Comments COMPREHENSIVE METABOLIC PANEL Routine 01/03/2024 1:54 PM EDT Other intermediate school teacher (current) drug therapy Psoriasis vulgaris from Last 3 Months or Most Recently Relevant to Health Maintenance Results * (ABNORMAL) Comprehensive metabolic panel (01/03/2024 1:54 PM EDT) SODIUM 143 136 - 145 mmol/L [facility] POTASSIUM 4.4 3.5 - 5.2 mmol/L [facility] CHLORIDE 104 95 - 106 mmol/L [facility] CO2 28 20 - 31 mmol/L [facility] BUN 16 9 - 23 mg/dL [facility] CREATININE 0.81 0.50 - 1.30 mg/dL [facility] GLUCOSE 101 74 - 106 mg/dL [facility] ALBUMIN 4.1 3.5 - 4.8 g/dL [facility] TOTAL PROTEIN 7.5 5.7 - 8.2 g/dL [facility] CALCIUM 9.4 8.7 - 10.4 mg/dL [facility] ALKALINE PHOSPHATASE 158(H) 27 - 129 U/L [facility] TOTAL BILIRUBIN 0.5 0.0 - 1.0 mg/dL [facility] AST 24 6 - 40 U/L [facility] ALT 20 10 - 49 U/L [facility] GLOBULIN 3.4 1.9 - 4.1 g/dL [facility] EGFR 74 >60 mL/min/1.7 3m2 [facility] Comment:Estimated glomerular filtration rate calculated using the CKD-EPI refit equation. ANION GAP 11 3 - 17 mmol/L [facility] Blood 01/03/2024 1:54 PM EDT 01/03/2024 4:18 PM EDT us Klaudia Painter MD LAB BLOOD ORDERABLES Final Resul t [facility] [address] [place] [address] from Last 3 Months or Most Recently Relevant to Health Maintenance Insurance MEDICARE PART A & B Member Subscriber Plan / Payer (Ef fective 2011-Present) Name:Marisa Gil Member ID:[id number] Relation to Subscriber:Self Name:Marisa Gil Subscriber ID:[id number] Payer ID:[id number] Group ID:Not on file Type:Medicare Address: [facility] [employer] [facility] [address] [place] [address] [place] [address] [facility] MEDICARE SUPPLEMENT [facility] Address: [facility] [address] [place] [address] MEDICARE PART A & B FOR LIFE MEDICARE SUPPLEMENT [facility] Address: [address] [address] MEDICARE PART A & B FOR LIFE MEDICARE SUPPLEMENT [facility] Address: [address] [address] MEDICARE PART A & B Member Subscriber Plan / Payer (Ef fective 2011-Present) Name:Marisa Gil Member ID:[id number] Relation to Subscriber:Self Name:Marisa Gil Subscriber ID:[id number] Payer ID:[id number] Group ID:Not on file Type:Medicare Address: [facility] [employer] [address] [place] [phone] [facility] FOR LIFE MEDICARE SUPPLEMENT [facility] Address: [address] [address] MEDICARE PART A & B [facility] FOR LIFE MEDICARE SUPPLEMENT [facility] Address: [address] [address] MEDICARE PART A & B [employer] FOR LIFE MEDICARE SUPPLEMENT [facility] Address: [address] [address] MEDICARE PART A & B FOR [employer] MEDICARE SUPPLEMENT MEDICARE PART A & B [employer] MEDICARE SUPPLEMENT [facility] Address: [address] [address] MEDICARE PART A & B [employer] MEDICARE SUPPLEMENT MEDICARE PART A & B Advance Directives For more information, please contact: [phone] (9AM - 5PM [facility], Tuesday-Tuesday) Documents on File Type Date Recorded Patient Distribution Collection Operator Expl anation MOLST 10/08/2020 1:27 PM Healthcare Proxy 09/12/2020 10:57 AM * Full Code (Latest Code Status on File) Date Activated Date Inactivated Comments 09/10/2020 2:27 PM Question Answer Comments Code Status Confirmed With: Patient Code Status Communicated To: Inpatient Attending Care Teams Special Weapons And Tactics Officer Relationship Specialty Start Date End Date Vidhya Bobby MD [address] [place] [address] PCP - General Internal Medicine 10/24/23 Vidhya Bobby MD [address] [place] [address] Internal Medicine 10/24/23 Patito Sheehan MD [phone] [place] [address] [email or web address] Plastic and Reconstructive Surgery 12/15/20 Additional Source Comments The information contained in this document represents components of the legal health record. It is not the complete legal health record.[facility]
--- OUTSIDE RECORDS SUMMARY | 2025-05-17 14:59 | XMS_ITS | Encounter Summary ---
Author Organization [facility] Address [address] [facility] [address] [place] [address] Phone Care Team Providers Care Tie Maker Name Role Phone Vidhya Bobby MD Primary Care Provider [phone] Vidhya Bobby MD Primary Care Provider Vidhya Bobby MD Unavailable [phone] Patito Sheehan MD Unavailable + Encounter Details Date Type Department Care Team (Late st Contact Info) Description 09/12/2020 Procedure Pass [facility], Zackery [address] [facility], [address]nd Floor, [address] [place] [address] Social History Tobacco Use Types Packs/Day Years [...] documented as of this encounter Care Teams Tie Maker Relationship Specialty Start Date End Date Vidhya Bobby MD [address] [facility] [place] [address] PCP - General Internal Medicine 09/05/20 10/23/23 Vidhya Bobby MD [address] [facility] [place] [address] PCP - General Internal Medicine 10/24/23 Vidhya Bobby MD [address] [facility] [place] [address] Internal Medicine 10/24/23 Patito Sheehan MD [phone] [place] [address] [email or web address] Plastic and Reconstructive Surgery 12/15/20 documented as of this encounter Additional Source Comments The information contained in this document represents components of the legal health record. It is not the complete legal health record.[facility]
--- OUTSIDE RECORDS SUMMARY | 2025-05-17 14:59 | XMS_ITS | Patient Health Record ---
Author Organization [facility] Address [address] [place] [address] Care Team Providers Care Rail Manager Name Role Phone Vidhya Bobby MD Primary Care Provider Unavaila Rakesh Arevalo Unavailable [phone] Elio Larsen Unavailable [phone] Allergies Allergen (clinical drug ingredient) Drug/Non Drug [...] atherosclerosis of arteries of lower limbs (disorder) ([id number] ) Atherosclerosis of [place] artery of both lower extremities, with unspecified presence of clinical manifestation (I70.203) Active confirmed Vital Signs Heart Rate 76 /min 10/19/2024 Blood pressure diastolic 80 mm Hg 03/27/2025 Height 5 ft 4 in in 03/27/2025 Blood pressure systolic 135 mm Hg 03/27/2025 Weight 135 lbs 03/27/2025 BMI 23.17 kg/m2 03/27/2025 Procedures Procedure Date Ordered Date Performed Result Body Sit e 05410-HOPWFEA NAIL, 6 OR MORE 06/20/2024 N/A 16726- Debride <25 sq cm 06/20/2024 N/A 42605-GCRS SKIN LESIONS, OVER 4 06/20/2024 N/A 98309-VYVHMLS NAIL, 6 OR MORE 10/19/2024 N/A 27837-ZJHA SKIN LESIONS, OVER 4 10/19/2024 N/A 69488-WLDAAXG NAIL, 6 OR MORE 12/24/2024 N/A 64392-RTUN SKIN LESIONS, OVER 4 12/24/2024 N/A 84977-RZGUPEY NAIL, 6 OR MORE 03/27/2025 N/A 83875-YPII SKIN LESIONS, OVER 4 03/27/2025 N/A Encounters Encounter Location Date Provider Diagnosis [facility] [address] [address] 06/20/2024 Rakesh Hector Atherosclerosis of n ative artery of both lower extremities, with unspecified presence of clinical manifestation I70.203 ; Onychomycosis B35.1 ; Pain of toe of right foot M79.674 ; Pain of toe of left foot M79.675 ; Skin ulcer of toe of left foot, limited to breakdown of skin L97.521 and Cellulitis of toe of left foot L03.[address] [address] 10/19/2024 Elio Larsen Atherosclerosis of n ative artery of both lower extremities, with unspecified presence of clinical manifestation I70.203 ; Onychomycosis B35.1 ; Pain of toe of right foot M79.674 and Pain of toe of left foot M79.[address] [address] 12/24/2024 Rakesh Hector Atherosclerosis of n ative [...] metatarsophalangeal joint of toe, initial encounter S93.149A [address] [address] 03/27/2025 Rakesh Hector Onychomycosis B35.1 ; Atherosclerosis of [place] artery of both lower extremities, with unspecified presence of clinical manifestation I70.203 ; Pain of toe of right foot M79.674 and Pain of toe of left foot M79.675 [facility] [address] [place] [address] 09/17/2024 Rakesh Hector [address] [address] 03/27/2025 Rakesh Hector Assessments Encounter Date Diagnosis (ICD Code) Assessment Notes Treatment Notes Treatment Clinical Notes Section Notes 06/20/2024 Onychomycosis (ICD-1 0 - B35.1) 06/20/2024 Atherosclerosis of [place] artery of both lower extremities, with unspecified presence of clinical manifestation (ICD-10 - I70.203) 10/19/2024 Onychomycosis (ICD-1 0 - B35.1) 10/19/2024 Atherosclerosis of [place] artery of both lower extremities, with unspecified presence of clinical manifestation (ICD-10 - I70.203) 12/24/2024 Onychomycosis (ICD-1 0 - B35.1) 12/24/2024 Atherosclerosis of [place] artery of both lower extremities, with unspecified presence of clinical manifestation (ICD-10 - I70.203) 03/27/2025 Onychomycosis (ICD-1 0 - B35.1) 03/27/2025 Atherosclerosis of [place] artery of both lower extremities, with unspecified [...] X ray : Foot, left 3V 03/18/2022 44902-TJNOTOL NAIL, 6 OR MORE 03/29/2022 17454-CVOAIPD NAIL, 6 OR MORE 05/12/2021 60419-GMFTMXO NAIL, 6 OR MORE 07/28/2021 04566-HXQUWEA NAIL, 6 OR MORE 11/24/2021 50950-HJFRMBH NAIL, 6 OR MORE 06/15/2022 69014-LWWBKSZ NAIL, 6 OR MORE 08/31/2022 02871-NSYPGMQ NAIL, 6 OR MORE 11/12/2022 83556-JWLSTMP NAIL, 6 OR MORE 01/24/2023 00206-UTUJYJI NAIL, 6 OR MORE 03/31/2023 26440-QAPJSRS NAIL, 6 OR MORE 06/09/2023 71974-TZMORLH NAIL, 6 OR MORE 08/11/2023 16438-QLSSTVW NAIL, 6 OR MORE 10/27/2023 95578-EEJGSCF NAIL, 6 OR MORE 03/22/2024 19163-SUPCBAZ NAIL, 6 OR MORE 06/20/2024 26452-TQJUQAW NAIL, 6 OR MORE 10/19/2024 72140-TBORRSQ NAIL, 6 OR MORE 12/24/2024 76151-UOGKIZG NAIL, 6 OR MORE 03/27/2025 01402-Zrzrfclc Plate 03/22/2024 13924-Wgaiqeje Plate 01/24/2023 86900-Ofawjqix Plate 10/27/2023 82971-Xrrdhfve Plate 11/24/2021 91463-Pxfmxksz Plate 07/28/2021 53106-Nqzfhwoi Plate 05/12/2021 16584-Vmiqrnco Plate 03/29/2022 37001- Debride <25 sq cm 03/29/2022 61633- Debride <25 sq cm 06/20/2024 48894 I&D ABSCESS- SIMPLE,SINGLE 022 42814-CLKF SKIN LESIONS, OVER 4 11/25/19 24255-QTJY SKIN LESIONS, OVER 4 08/31/19 46229-JWJA SKIN LESIONS, OVER 4 06/15/20 55448-UKWX SKIN LESIONS, OVER 4 03/29/20 69157-LQXX SKIN LESIONS, OVER 4 03/22/20 51144-JALS SKIN LESIONS, OVER 4 10/27/19 24 27639-DYAI SKIN LESIONS, OVER 4 08/11/20 45375-PLOW SKIN LESIONS, OVER 4 06/09/20 72259-WMTB SKIN LESIONS, OVER 4 03/31/20 87759-GQIW SKIN LESIONS, OVER 4 01/25/20 58749-ZLOZ SKIN LESIONS, OVER 4 11/13/19 28161-GTVM SKIN LESIONS, OVER 4 03/27/20 99305-UGBH SKIN LESIONS, OVER 4 12/25/19 28903-TAGI SKIN LESIONS, OVER 4 10/19/19 25 28662-UXOY SKIN LESIONS, OVER 4 06/20/20 24 25250-DHQP SKIN LESIONS, 2 TO 4 05/12/20 09634-JSHW SKIN LESIONS, 2 TO 4 07/28/20 21 Next Appt Details Provider Name:Rakesh Busch Krunal , 07/10/2025 11:15:00 AM, [address] [facility] [facility] [address], [place], [address], Insurance Providers Payer Name Payer Address Payer Phone Subscriber Number Group Number Insured Name Patient Relationship to Insured Coverage Start Date Coverage End Date Medicare [facility] [address] [place] [address] [id number] Marisa Gil Self - patient is the insured for Life [address] [place] [id number] Marisa Gil Self - patient is the insured Medical (General) History Medical History History ICD Code Cataracts High blood pressure Stroke - Left CAD Surgical History Surgery Date(Month/Year) prolaspe 07/02/20 Hospitalization History Reason Date(Month/Year) [facility] - x-ray taken Fractured Tiffany marin 07/22/21
== END 2025-05-17 14:37 | disposition home or self-care (01) ==
LOC: HO.HMCC 13:48
PROVIDERS: PCP Internal Medicine; Visit Provider Internal Medicine
DX: I63.9 Cerebral infarction, unspecified (principal); I10 Essential (primary) hypertension; I48.91 Unspecified atrial fibrillation; F41.9 Anxiety disorder, unspecified; D64.9 Anemia, unspecified